=== PATIENT | male | born 1940 | race Caucasian/White ===

== ENCOUNTER 2017-03-29 06:34 | Inpatient (IN) ==
[2017-03-29] MEDS ORDERED: ASPIRIN 325 MG TABLET PO STA (06:58)
[2017-03-29] MEDS ORDERED: ENOXAPARIN 100 MG/ML SYRINGE SUBCUT STA (06:58)
[2017-03-29] MEDS ORDERED: ALUM/MAG/SIMETH/LIDO VISC 1:1 30 ML BOTTLE PO STA (07:06)
[2017-03-29] MEDS ORDERED: ALUM/MAG/SIMETH/LIDO VISC 1:1 30 ML BOTTLE PO ONE (07:08)
[2017-03-29] MEDS ORDERED: ASPIRIN 325 MG TABLET ONE (07:08)
--- NOTE | 2017-03-29 07:14 | Emergency Department Note ---
Christ Garland Brooke, am scribing for, and in the presence of, Zeferino De La Fuente MD 07:09 . Leisa Garland James D, MD, personally performed the services described in this documentation, ascribed by hTalia Polo in my presence, and it is both accurate and complete 713 . Arrival - Arrival Chief Complaint: Chest Pain Stated Complaint: chest pain ED Nursing Triage Note: Pt to triage with c/o stabbing chest pain, but denies it radiating. Denies SOB, N/V, at this time. Pt family states he was just discharged from [facility] yesterday with the same complaint. Mode of Arrival: Ambulatory Limitations: No Limitations Source: Patient, RN Notes Reviewed Time Seen by Provider: 03/29/17 06:58 - History of Present Illness HPI Narrative: Patient is a 76 year old male who presents to the ED with c/o epigastric pain and burning that started on Tuesday around 1999. Patient says the pain radiates up into his chest. He states "it hurts more than it velasquez." Patient says the pain is not worsened with exertion and sates "sometimes it's better when I move around." Patient says he has been seen, in the past, with same complaint. He is unable to recall what was wrong with him but says he did take medication for it. Patient says he saw Dr. White, with the pain in the past, and he was able to rule out the heart. He says Dr. Eduardo scoped him about two years ago and says he was having problems with his "throat closing up." Patient says he is not having problems with food getting caught in his throat. Patient denies having any nausea, vomiting, or shortness of breath. He has no known medical problems. Onset (ago): day(s) (2) Allergies/Adverse Reactions: Allergies Allergy/AdvReac Type Severity Reaction Status Date / Time No Known Allergies Allergy Unverified 03/29/17 06:39 Home Medications: Home Medications Medication Instructions Recorded Confirmed Type Aspirin 81 mg PO 03/29/17 History Pantoprazole Tab [Protonix Tab] 40 mg PO DAILY 03/29/17 03/29/17 History Review of System - Review of System 12 point system: reviewed and no additional remarkable complaints except as stated - Review of System Constitutional: Absent: fever Respiratory: Absent: respiratory distress Cardiovascular: Present: chest pain (epigastric pain and burning radiating into chest) Gastrointestinal: Present: abdominal pain (epigastric pain and burning). Absent : nausea, vomiting Skin: Absent: rash Medical,Surgical,& Family Hx - Social History Smoking Status: Unknown if ever smoked Frequency of Alcohol Use: None Type of Drug Use: None Exam Vital Signs: Vital Signs Temperature 98.4 F 03/29/17 07:02 Pulse Rate 63 03/29/17 07:30 Respiratory Rate 21 03/29/17 07:30 Blood Pressure 158/103 03/29/17 07:30 O2 Sat by Pulse Oximetry 97 03/29/17 07:30 GENERAL: This is a well-nourished well-developed white male in no apparent distress. VITAL SIGNS: Reviewed HEENT: Head is atraumatic and normocephalic. Pupils are equal round react to light. Extraocular movements are intact. Oropharynx is benign with moist mucous membranes. NECK: Neck is soft and supple without tenderness. There are no masses. There is no lymphadenopathy. LUNGS: Lungs are clear to auscultation. Chest rises symmetrically. There is no chest wall tenderness. CV: Heart is regular rate and rhythm without murmurs rubs or gallops. ABDOMEN: Abdomen is soft, nontender to palpation. There are no abdominal abnormal masses palpated. There is no organomegaly. Bowel sounds are present and active. SKIN: Skin is warm and dry. No rash. EXTREMITIES: Patient has full range of motion without tenderness. There is no pedal edema. NEUROLOGIC: Awake alert and oriented 4. Cranial nerves II through XII are grossly intact. Motor is 5 over 5 in all extremities bilaterally. Course - Consultations Consultation #1: Discussed with hospitalist. Patient will be admitted to their service. Time: 09:18 Results - Labs CBC & BMP: 03/29/17 07:23 03/29/17 07:23 Lab Results: I have reviewed the patients labs Labs: Laboratory Tests 03/29/17 07:23 Troponin I < 0.015 CT abdomen and pelvis: Performed at [facility] yesterday. Negative for evidence of acute intra-abdominal process. - EKG EKG results: interpreted by ERMD - Impressions EKG: Sinus bradycardia with a rate of 55, normal ST-T waves, normal axis. - Diagnostic Findings Procedure: Chest x-ray: image reviewed by me (No infiltrates, no pleural effusions.), Ultrasound: report reviewed by me (Gallbladder ultrasound: No evidence of cholelithiasis or cholecystitis.) Critical Care Time Critical Care Time: No Disposition Clinical Impression: Upper abdominal pain, Left sided chest pain Case discussed with: patient Disposition: Still a Patient Condition: Stable
[2017-03-29] MEDS ORDERED: FAMOTIDINE 20 MG/2 ML VIAL IV STA (07:31)
[2017-03-29] MEDS ORDERED: ONDANSETRON 4 MG/2 ML VIAL IV STA (07:31)
[2017-03-29] MEDS ORDERED: ONDANSETRON 4 MG/2 ML VIAL ONE (07:32)
[2017-03-29] MEDS ORDERED: FAMOTIDINE 20 MG/2 ML VIAL IV ONE (07:32)
[2017-03-29 07:39] LABS: Basophils % 0.3 % (0.0-0.8); Eosinophils % 0.1 % (0.00-10.9); Hematocrit 46.6 VOL% (42.0-52.0); Hemoglobin 16.6 GM/DL (14.0-18.0); Immature Granulocytes % 0.4 %; Immature Granulocytes Absolute 0.06 #; Lymphocytes % 7.5 % (21.2-54.2); Mean Corpuscular HGB Conc 35.6 GM/DL (32-36); Mean Corpuscular Hemoglobin 31 PG (27-34); Mean Corpuscular Volume 87.9 FL (87-102); Mean Platelet Volume 12.2 FL (9.6-12.0); Monocytes # 1.3 10*3/uL (0.11-0.8); Monocytes % 9.8 % (1.7-12.7); Neutrophils # 11.2 10*3/uL (1.4-7.4); Neutrophils % 81.9 % (38.7-73.9); Platelet Count 149 T/CUMM (130-400); Red Cell Distribution Width 12.5 % (9.3-17.3); White Blood Count 13.7 T/CUMM (4-12)
--- NOTE | 2017-03-29 07:39 | XRay Report ---
XR chest 2V Indication: Chest pain Comparison: 23 June 2013 Findings: The heart and mediastinum are normal in size and configuration. The pulmonary vascularity is normal in caliber. No lung infiltrates, effusions, pneumothorax or other abnormality is demonstrated. Impression: Normal chest x-ray PROCEDURE INTERPRETED AT [facility] DEPARTMENT OF RADIOLOGY Final Report Signed by: Dr. Adonis Day
[2017-03-29] MEDS ORDERED: HYDROmorphone 2 MG/1 ML VIAL IV STA ×2 (07:43→09:43)
[2017-03-29] MEDS ORDERED: HYDROmorphone 2 MG/1 ML VIAL ONE ×2 (07:47→09:42)
[2017-03-29 07:52] LABS: PT Patient Result 10.5 SECS; Partial Thromboplastin Time 29.3 SECS (0-40)
[2017-03-29 08:16] LABS: Albumin 3.9 G/DL (3.4-5.0); Bilirubin,Total 1.2 MG/DL (0.2-1.0); Calcium 9.2 MG/DL (8.5-10.1); Osmolality,Calculated 269.4 MOS/KG (273-304); Potassium 3.8 MMOL/L (3.5-5.1); Total Protein 7.2 G/DL (6.4-8.3)
--- NOTE | 2017-03-29 08:20 | Ultrasound Report ---
Right upper quadrant ultrasound Indication: Abdominal Pain Findings: The liver is normal in size and echogenicity. The gallbladder is fluid-filled without evidence of stones or sludge. The gallbladder wall thickness is 3.2 mm . The common bile duct measures 3.9 mm. The visualized portion of the pancreas appear within normal limits The right kidney is normal in size and echogenicity and measures 10.0 cm . No free fluid or free air seen. Impression: No evidence of abnormality demonstrated. Ultrasound images stored and captured. PROCEDURE INTERPRETED AT [facility] DEPARTMENT OF RADIOLOGY Final Report Signed by: Dr. Adonis Day
--- NOTE | 2017-03-29 11:31 | Hospitalist History & Physical ---
Assessment and Plan - Time spent with patient Time spent with patient: Greater than 30 minutes (1) Upper abdominal pain Status: Acute Assessment and plan: Admit to Hospital Services. Will order a.m. labs. Will need to consult GI for further evaluation. Will discuss with Dr Briones for further recommendations. Current Visit: Yes History of Present Illness Chief complaint: Epigastric pain History of present illness: Mr. Manuel is a 76 year old white male presented to the ED for c/o severe epigastric pain and burning which occasionally radiates up to the lower chest started on Tuesday afternoon. He describes as "hurting/burning" pain but it does not radiate to any other location. PMHx of GERD and frequent "throat strictures stretched". He reports chest pain was more on Tuesday now pain is more localized to the upper middle epigastric area. He denies shortness of breath, fever, chills. He reports some nausea without vomiting. Reports last BM on Tuesday and normal. Denies any dark stools or bright red. Denies smoking, drinking alcohol or illicit drug use. Lives at home with . Ambulates without any assistance. He reports last upper scope was done about 1 [address] Eduardo, at which time "throat" was stretched. In ED: WBC 13.7; H&H 16.6 & 46.6; INR 1.0 PT 10.5; NA 133; K 3.8; BUN 16; Creatinine 1.40; Troponin <0.015 AST 17 ALT 27; Alkaline phos 80; Lipase 120.0. CXR normal chest xray. Gallbladder ultrasound: no evidence of abnormality demonstrated. Patient reported being seen at [facility] ED on Tuesday. They worked him up. He was discharged home. The CT Abd/Pelvis was negative for evidence of acute intra-abdominal process. After discussion with Dr De La Fuente in the ED and Dr Briones with Hospital medicine, it was agreed to admit patient to hospital for further evaluation. Will review any home medications and reconciliation to follow. Home Medications Medication Instructions Recorded Confirmed Type Aspirin EC Tab 81 mg PO DAILY 03/29/17 03/29/17 History Pantoprazole Tab [Protonix Tab] 40 mg PO DAILY 03/29/17 03/29/17 History Allergies Allergy/AdvReac Type Severity Reaction Status Date / Time No Known Allergies Allergy Unverified 03/29/17 06:39 Medical,Surgical,& Family Hx - Social History Smoking Status: Unknown if ever smoked Frequency of Alcohol Use: None Type of Drug Use: None Marital Status: Lives With:: Spouse Functional capacity: independent ambulation Review of systems: ROS completed and pertinent positives and negatives in the HPI. Exam - Constitutional Vitals: Period Temp Pulse Resp BP Sys/Horner Pulse Ox Last 24 Hr 98.4 F-98.4 F 54-71 15-21 130-171/68-103 97-100 General appearance: no acute distress, over weight - Head Head exam: Present: normal inspection - Eye Eye exam: Present: EOMI Pupils: Present: FERMÍN - Neck Neck exam: Present: normal inspection - Respiratory Respiratory exam: Present: clear to auscultation bilaterally. Absent: rhonchi, stridor, wheezes - Cardiovascular Cardiovascular exam: Present: regular rate and rhythm - GI/Abdominal GI/Abdominal exam: Present: normal bowel sounds, soft. Absent: tenderness, rebound - Extremities Exam Extremities exam: Present: full ROM. Absent: edema - Neurological Exam Neurological exam: Present: alert, oriented X3, CN II-XII intact - Psychiatric Psychiatric exam: Present: normal affect, normal mood. Absent: agitated, anxious - Skin Skin exam: Present: normal color, warm, dry Results - Labs CBC & BMP: 03/29/17 07:23 03/29/17 07:23 Lab Results: I have reviewed the past 24 hour labs - EKG EKG results: interpreted by ERMD - Diagnostic Findings Procedure: Chest x-ray: report reviewed by me (normal chest xray), Ultrasound: report reviewed by me (ABD: no evidence of abnormality demonstrated)
[2017-03-29] MEDS ORDERED: DOCUSATE SODIUM 100 MG CAPSULE PO PRN (11:42)
--- NOTE | 2017-03-29 14:02 | Gastrointestinal Consult Note ---
<NavdeepElke pena Gabrielle - Last Filed: 03/29/17 13:56> Assessment and Plan (1) Upper abdominal pain Status: Acute Assessment and plan: 03/29-2 day history of sudden onset epigastric pain radiating to right upper quadrant with associated nausea. Pain reported to be constant in nature wavered in intensity. Inability to eat or lie down and rest due to pain. CT of abdomen at outside facility on Tuesday noted. Obtain gallbladder ultrasound today (patient n.p.o.). Tentative plan for EGD tomorrow if patient remains stable. Check stools for occult blood. Plan and addendum to follow by Dr Eduardo. Current Visit: Yes History of Present Illness Chief complaint: Abdominal pain/epigastric pain History of present illness: Mr. Manuel is a 76 year old male who presented to the emergency room with 2 day history of moderate to severe epigastric and abdominal pain. Patient states that he was in his usual state of health until Tuesday evening after he ate his meal. He states shortly after that meal, he had a fairly sudden onset of pain in his epigastric region that radiated to his right upper quadrant and at times around to his back. He states that the pain was moderate to severe in nature and was constant wavering in intensity. He also complained of some burning sensations as well in his epigastric region. He also states he had some nausea without vomiting with the pain. He denies any other associated symptoms. Following the onset of pain on Tuesday evening, he went to [facility] where he had a CT scan done which was negative at that time. He was then discharged home. Patient states that the pain has continued and progressed since onset on Tuesday and he has been unable to eat or drink anything since that time. He denies any changes in his bowels, denies any melena or hematochezia. He denies any recent weight loss, fever or chills. Denies any NSAID use. States that he does have a history of esophageal stricture and was last dilated approximately a year ago at the endoscopic clinic by Dr. Eduardo. Patient denies any dysphagia or odynophagia at this time. He denies any worsening GERD or dyspepsia symptoms. His only home medications are noted to be Protonix, which he states he takes daily, and aspirin. He denies any history of cardiac disease. Denies having this pain before in the past. Denies history of GI bleed or peptic ulcer disease. He does state that if he can get up and walk around at times the pain is a little bit better. Patient states he has not been able to sleep or sit still since onset of pain on Tuesday. He denies history of gallbladder disease in the past. He denies any alcohol or tobacco use. Home Medications Medication Instructions Recorded Confirmed Type Aspirin EC Tab 81 mg PO DAILY 03/29/17 03/29/17 History Pantoprazole Tab [Protonix Tab] 40 mg PO DAILY 03/29/17 03/29/17 History Allergies Allergy/AdvReac Type Severity Reaction Status Date / Time No Known Allergies Allergy Unverified 03/29/17 06:39 Medical,Surgical,& Family Hx - Social History Smoking Status: Unknown if ever smoked Frequency of Alcohol Use: None Type of Drug Use: None 12 point system: reviewed and no additional remarkable complaints except as stated - Constitutional Constitutional: Present: as per HPI - EENT Eyes: Present: as per HPI Ears: Present: as per HPI Nose, mouth and throat: Present: as per HPI - Cardiovascular Cardiovascular: Present: as per HPI - Respiratory Respiratory: Present: as per HPI - Gastrointestinal Gastrointestinal: Present: as per HPI, abdominal pain, heartburn, nausea - Genitourinary Genitourinary: Present: as per HPI - Musculoskeletal Musculoskeletal: Present: as per HPI - Neurological Neurological: Present: as per HPI - Psychiatric Psychiatric: Present: as per HPI - Endocrine Endocrine: Present: as per HPI - Hematologic/Lymphatic Hematologic/Lymphatic: Present: as per HPI Exam - Constitutional Vitals: Period Temp Pulse Resp BP Sys/Horner Pulse Ox Last 24 Hr 98.4 F-99.1 F 54-76 15-21 130-178/68-103 97-100 General appearance: normal weight, no acute distress - Head Head exam: Present: normal inspection, normocephalic - Eye Eye exam: Present: other (Lids and conjunctivae are unremarkable). Absent: scleral icterus - ENT ENT exam: Present: normal exam, normal oropharynx - Neck Neck exam: Present: normal inspection - Respiratory Respiratory exam: Present: clear to auscultation bilaterally. Absent: rales, rhonchi, wheezes - Cardiovascular Cardiovascular exam: Present: regular rate and rhythm. Absent: diastolic murmur , JVD, systolic murmur - GI/Abdominal GI/Abdominal exam: Present: normal bowel sounds, soft. Absent: ascites, distended, mass, organomegaly, tenderness - Extremities Exam Extremities exam: Present: normal inspection, full ROM - Back Exam Back exam: Present: normal inspection - Neurological Exam Neurological exam: Present: alert, oriented X3 - Psychiatric Psychiatric exam: Present: normal affect, normal mood - Skin Skin exam: Present: normal color, warm, dry Results - Labs CBC & BMP: 03/29/17 07:23 03/29/17 07:23 Lab Results: I have reviewed the past 24 hour labs - Diagnostic Findings Procedure: CT Abdomen and Pelvis: report reviewed by me (From outside facility) <Eh Eduardo - Last Filed: 03/29/17 21:49> History of Present Illness Chief complaint: 3030 History of present illness: Mr. Manuel is a 76 year old male Exam - Constitutional Vitals: Period Temp Pulse Resp BP Sys/Horner Pulse Ox Last 24 Hr 97.2 F-101.7 F 54-82 15-21 130-180/68-103 92-100 Results - Labs CBC & BMP: 03/29/17 07:23 03/29/17 07:23
[2017-03-29] MEDS: SODIUM CHLORIDE 0.9% 1,000 ML IV SCH (14:57)
[2017-03-29] MEDS: ENOXAPARIN 40 MG/0.4 ML SYRINGE SUBCUT SCH (14:57)
[2017-03-29] MEDS: ACETAMINOPHEN 325 MG TABLET PO PRN (15:05)
[2017-03-29] MEDS ORDERED: NIFEdipine 10 MG CAPSULE PO PRN (15:50)
[2017-03-29] MEDS ORDERED: HYDROmorphone 2 MG/1 ML VIAL IV PRN (15:50)
[2017-03-29] MEDS: FAMOTIDINE 20 MG/2 ML VIAL IV SCH (20:29)
--- NOTE | 2017-03-30 05:57 | EKG Report ---
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
[2017-03-30 06:20] LABS: Basophils % 0.2 % (0.0-0.8); Hematocrit 41.4 VOL% (42.0-52.0); Hemoglobin 14.9 GM/DL (14.0-18.0); Immature Granulocytes % 0.6 %; Immature Granulocytes Absolute 0.12 #; Lymphocytes # 0.8 10*3/uL (1.4-4.0); Lymphocytes % 3.9 % (21.2-54.2); Mean Corpuscular Hemoglobin 31 PG (27-34); Mean Corpuscular Volume 86.1 FL (87-102); Mean Platelet Volume 12.6 FL (9.6-12.0); Monocytes % 9.4 % (1.7-12.7); Neutrophils # 18.2 10*3/uL (1.4-7.4); Neutrophils % 85.9 % (38.7-73.9); Platelet Count 117 T/CUMM (130-400); Red Blood Count 4.81 MC/CUMM (3.8-5.5); Red Cell Distribution Width 12.4 % (9.3-17.3); White Blood Count 21.2 T/CUMM (4-12)
[2017-03-30 06:44] LABS: Band Neutrophils 3 % (0-10); Hypochromasia 1+; Lymphocytes 4 % (20-55); Platelet Estimate Decreased; Segmented Neutrophils 86 % (50-85); Total Cells Counted 100
[2017-03-30 06:50] LABS: Calcium 8.6 MG/DL (8.5-10.1); Magnesium 1.8 MG/DL (1.8-2.4); Osmolality,Calculated 269.4 MOS/KG (273-304); Potassium 3.6 MMOL/L (3.5-5.1)
[2017-03-30] MEDS: SODIUM CHLORIDE 0.9% 1,000 ML IV SCH ×3 (06:50→23:22)
[2017-03-30 06:54] LABS: Troponin I Only < 0.015 NG/ML (0.00-0.045)
[2017-03-30] MEDS ORDERED: PANTOPRAZOLE 40 MG TABLET PO SCH (09:00)
--- NOTE | 2017-03-30 11:26 | Gastrointestinal Progress Note ---
<DarrenElke miller Gabrielle - Last Filed: 03/30/17 11:24> Assessment and Plan (1) Upper abdominal pain Status: Acute Assessment and plan: 03/30-abdominal pain improved today. Awaiting results of HIDA scan at present time. Reschedule EGD for tomorrow. Plan an addendum to follow Dr. Eduardo. 03/29-2 day history of sudden onset epigastric pain radiating to right upper quadrant with associated nausea. Pain reported to be constant in nature wavered in intensity. Inability to eat or lie down and rest due to pain. CT of abdomen at outside facility on Tuesday noted. Obtain gallbladder ultrasound today (patient n.p.o.). Tentative plan for EGD tomorrow if patient remains stable. Check stools for occult blood. Plan and addendum to follow by Dr Eduardo. Current Visit: Yes Gastroenterology - PN: Subj Interval history: CC: Abdominal pain Patient is seen awake and alert lying in bed. States that he rested fairly well overnight. He denies any epigastric abdominal pain at this time. He was scheduled for an EGD today however there was a conflict with the timing of his endoscopy as well as his HIDA scan in the EGD has to be postponed to tomorrow. He denies any nausea vomiting. Abdomen is soft, nontender at this time. Abdominal ultrasound noted to be negative on yesterday. ROS: Denies shortness of breath or chest pain Exam (Progress Note) - Constitutional Vitals: Period Temp Pulse Resp BP Sys/Horner Pulse Ox Last 24 Hr 97.2 F-101.7 F 75-86 15-20 121-180/65-95 91-98 General appearance: normal weight, no acute distress - Head Head exam: Present: normal inspection, normocephalic - Eye Eye exam: Present: other (Lids and conjunctive are unremarkable). Absent: scleral icterus - ENT ENT exam: Present: normal exam, normal oropharynx - Neck Neck exam: Present: normal inspection - Respiratory Respiratory exam: Present: clear to auscultation bilaterally. Absent: rales, rhonchi, wheezes - Cardiovascular Cardiovascular exam: Present: regular rate and rhythm. Absent: diastolic murmur , JVD, systolic murmur - GI/Abdominal GI/Abdominal exam: Present: normal bowel sounds, soft. Absent: ascites, distended, mass, organomegaly, tenderness - Extremities Exam Extremities exam: Present: normal inspection, full ROM - Back Exam Back exam: Present: normal inspection - Neurological Exam Neurological exam: Present: alert, oriented X3 - Psychiatric Psychiatric exam: Present: normal affect, normal mood - Skin Skin exam: Present: normal color, warm, dry Results - Labs CBC & BMP: 03/30/17 05:56 03/30/17 05:56 Lab Results: I have reviewed the past 24 hour labs - Diagnostic Findings Procedure: Ultrasound: report reviewed by me <Eh Eduardo - Last Filed: 03/30/17 22:43> Exam (Progress Note) - Constitutional Vitals: Period Temp Pulse Resp BP Sys/Horner Pulse Ox Last 24 Hr 98.6 F-100.0 F 77-132 18-35 118-183/63-97 91-97 Results - Labs CBC & BMP: 03/30/17 05:56 03/30/17 05:56
--- NOTE | 2017-03-30 11:48 | Nuclear Medicine Report ---
Nuclear medicine hepatobiliary scan Indication: Abdominal pain Findings: The patient was injected with 5.0 mCi of 90 9M technetium Choletec intravenously. There is prompt hepatic uptake and excretion into the biliary system. Gallbladder did not fill. Impression: Nonvisualization of gallbladder, could indicate acute cholecystitis. PROCEDURE INTERPRETED AT [facility] DEPARTMENT OF RADIOLOGY Final Report Signed by: Dr. Adonis Day
--- NOTE | 2017-03-30 12:33 | Hospitalist Progress Note ---
Assessment and Plan (1) Upper abdominal pain Status: Acute Assessment and plan: Abdominal ultrasound noted to be negative .CXR also negative. Patient has had an HIDA scan today, he has been scheduled for an EGD in am. Will also get H.pylori testing. Current Visit: Yes (2) Fever Status: Acute Assessment and plan: with elevated WBC, CXR-negative Plan BC, UC Empiric Zosyn coverage cbc in am Current Visit: Yes (3) Elevated blood pressure reading Status: Acute Assessment and plan: continue Nifedipine prn Current Visit: Yes Hospitalist: Subjective Interval history: Patient is still spiking temp, his WBC has also increased to 21.2.CXR, Gall bladder were negative. Exam - Constitutional Vitals: Period Temp Pulse Resp BP Sys/Horner Pulse Ox Last 24 Hr 97.2 F-101.7 F 76-86 17-20 121-183/65-97 91-98 General appearance: no acute distress - Head Head exam: Present: normal inspection - Neck Neck exam: Present: normal inspection - Respiratory Respiratory exam: Present: clear to auscultation bilaterally - Cardiovascular Cardiovascular exam: Present: regular rate and rhythm - GI/Abdominal GI/Abdominal exam: Present: normal bowel sounds - Extremities Exam Extremities exam: Present: normal inspection - Neurological Exam Neurological exam: Present: alert, oriented X3 Results - Labs CBC & BMP: 03/30/17 05:56 03/30/17 05:56 Lab Results: I have reviewed the past 24 hour labs
[2017-03-30] MEDS ORDERED: METOPROLOL TARTRATE 25 MG TABLET PO SCH (16:00)
[2017-03-30 16:28] LABS: Amorphous Crystals,Urine Occasional /HPF (Few); Apearance,Urine CLOUDY (Clear); Bacteria,Urine Occasional /HPF (Few); Bilirubin,Urine Negative (Negative); Blood, Urine Moderate mg/dL (Negative); Glucose,Urine (UA) Negative (Negative); Ketones,Urine Negative (Negative); Mucus,Urine Occasional /LPF (Occasional); Nitrite,Urine Negative (Negative); Protein,Urine 100 MG/DL; RBC,Urine 20 /HPF (0-4); Squamous Epithelial Cell,Urine Occasional /HPF (0-10); Urine Color Dark yellow (Yellow); Urine Specific Gravity 1.013 (1.001-1.035); WBC,Urine 2 /HPF (0-6)
--- NOTE | 2017-03-30 16:33 | EKG Report ---
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
[2017-03-30] MEDS: FAMOTIDINE 20 MG/2 ML VIAL IV SCH ×2 (16:54→23:16)
[2017-03-30] MEDS: PIPERACILLIN/TAZOBACTAM 3,375 MG in SODIUM CHLORIDE 0.9% 100 ML IV SCH (16:56)
--- NOTE | 2017-03-30 17:03 | General Surgery Consult Note ---
Assessment and Plan - Time spent with patient Time spent with patient: Greater than 30 minutes (1) Cholecystitis, acute Status: Acute Assessment and plan: He appears to have acute cholecystitis. He may have developing sepsis. He just received his first dose of IV antibiotics. I suspect that his tachycardia is related to his gallbladder and developing sepsis and we will check an EKG to make sure that he has not gone into atrial fibrillation. I discussed the treatment options with the patient in the family. I had initially discussed laparoscopic cholecystectomy with him and they have expressed concerns about doing a cholecystectomy considering the fact that he seems to be getting sicker and may not be a good candidate for surgery. We also discussed the option of IV antibiotics and resuscitation with consideration of a percutaneous drain to temporize the situation and relieve any biliary sepsis temporarily. I also discussed this with Dr. Jacobs who is going to see how he does on antibiotics and if he responds then we can hold off however if he continues to worsen then we can look at doing a percutaneous drain tonight. Either way I feel that he needs to be moved to the ICU and I discussed this with Dr. Ricarda alvarenga. I would hope to see that he responds to antibiotics and fluids however if he does not we need to intervene on his gallbladder with either percutaneous drainage or going ahead with cholecystectomy. These issues were discussed in detail with the patient and family. Current Visit: Yes History of Present Illness Chief complaint: Gallbladder History of present illness: Mr. Manuel is a 76 year old male With a 3 day history of right upper quadrant pain and some nausea and vomiting. The pain has been intermittent and moderate in severity and sometimes radiating to his back. He had an ultrasound that was normal other than some borderline gallbladder wall thickness. He had a HIDA scan today which showed nonvisualization of his gallbladder. Family reports changes in his mental status and confusion over the last couple of hours. He was fine before that. He currently denies abdominal pain but has had some pain medication. He has developed a tachycardia over the last hour or 2 that is needed. Home Medications Medication Instructions Recorded Confirmed Type Aspirin EC Tab 81 mg PO DAILY 03/29/17 03/29/17 History Pantoprazole Tab [Protonix Tab] 40 mg PO DAILY 03/29/17 03/29/17 History Allergies Allergy/AdvReac Type Severity Reaction Status Date / Time No Known Allergies Allergy Unverified 03/29/17 06:39 Medical,Surgical,& Family Hx - Medical History Gastrointestinal: History of: GERD - Surgical History Surgical History: noncontributory Thoracic Surgeries: Patient denies;: Kidney (Renal Surgery) (cyst but no surgery. dr. stafford follows) - Family History Family History: noncontributory - Social History Smoking Status: Unknown if ever smoked Frequency of Alcohol Use: None Type of Drug Use: None - Constitutional Constitutional: Present: fever(s). Absent: anorexia, chills - Cardiovascular Cardiovascular: Absent: chest pain at rest, chest pain with activity, dyspnea, dyspnea on exertion, syncope - Respiratory Respiratory: Absent: dyspnea, hemoptysis, dyspnea on exertion - Gastrointestinal Gastrointestinal: Present: abdominal pain, bloating, nausea, vomiting. Absent: hematemesis, hematochezia, jaundice - Genitourinary Genitourinary: Absent: hematuria - Musculoskeletal Musculoskeletal: Absent: back pain - Neurological Neurological: Absent: focal weakness Hematologic/Lymphatic: Absent: easy bleeding, easy bruising Exam - Constitutional Vitals: Period Temp Pulse Resp BP Sys/Horner Pulse Ox Last 24 Hr 97.2 F-100.3 F 77-132 18-35 118-183/63-97 91-97 General appearance: no acute distress, over weight - Head Head exam: Present: normocephalic - Eye Eye exam: Absent: scleral icterus - ENT Mouth exam: Present: normal voice - Neck Neck exam: Present: trachea midline - Respiratory Respiratory exam: Present: clear to auscultation bilaterally. Absent: accessory muscle use - Cardiovascular Cardiovascular exam: Present: RRR - GI/Abdominal GI/Abdominal exam: Present: normal bowel sounds, distended, soft. Absent: guarding, mass, tenderness, rebound - Extremities Exam Extremities exam: Absent: edema - Neurological Exam Neurological exam: Present: alert, oriented X3 Speech: Present: normal - Skin Skin exam: Present: normal color Results - Labs CBC & BMP: 03/30/17 05:56 03/30/17 05:56 Lab Results: I have reviewed the past 24 hour labs
--- NOTE | 2017-03-30 17:37 | Inventional Radiology Consult ---
Assessment and Plan - Time spent with patient Time spent with patient: Less than 30 minutes (1) Cholecystitis, acute Problem details: may be progressing to sepsis with new tachycardia and confusion Status: Acute Assessment and plan: got first dose of ZOsyn this afternoon and is being transferred to the ICU for closer monitoring. We will see how he does clinically with IV hydration and antibiotic administration. The EKG does not show atrial fibrillation or acute ischemia. At this point, plan is for gallbladder drain placement first case in the morning. NPO after midnight. ASA III Discussed the risks and into the benefits with the patient/family who agreed to proceed. Current Visit: Yes IR Consult - Data of Consult Patient: new to practice Consult date: 03/30/17 Requesting Physician: Epifanio Bose III. - Consult Narrative Reason for consult: probable biliary sepsis History of present illness: Mar is a 76 year old M 3 day history of RUQ pain and n/v. The pain has been intermittent and moderate to severe with some radiation to the back. U/s shows mildly dilated GB without stones and NM HIDA shows nonvisualization of the GB. The WBC count is 21k today up from 13k. Family reports that mental status changes are new/progressing this afternoon. He was not getting any antibiotics until today. On my interview, he does report some abdominal pain but he is somewhat nonspecific and drowsy. He has no chest pain. There is no reported shortness of breath. Tachycardia is noted, which reportedly has developed over the last couple hours. ROS otherwise negative. - Home Medications and Allergies Home Medications: Home Medications Medication Instructions Recorded Confirmed Type Aspirin EC Tab 81 mg PO DAILY 03/29/17 03/29/17 History Pantoprazole Tab [Protonix Tab] 40 mg PO DAILY 03/29/17 03/29/17 History Allergies/Adverse Reactions: Allergies Allergy/AdvReac Type Severity Reaction Status Date / Time No Known Allergies Allergy Unverified 03/29/17 06:39 12 point system: reviewed and no additional remarkable complaints except as stated Medical,Surgical,& Family Hx - Medical History Gastrointestinal: History of: GERD - Surgical History Thoracic Surgeries: Patient denies;: Kidney (Renal Surgery) (cyst but no surgery. dr. stafford follows) - Social History Smoking Status: Unknown if ever smoked Frequency of Alcohol Use: None Type of Drug Use: None Exam - Labs CBC & BMP: 03/30/17 05:56 03/30/17 05:56 Lab Results: I have reviewed the past 24 hour labs Labs: INR 1.0 03/29/17 07:23 Image Studies: U/s and NM HIDA reviewed - Constitutional Vitals: Period Temp Pulse Resp BP Sys/Horner Pulse Ox Last 24 Hr 97.2 F-100.3 F 77-132 18-35 118-183/63-97 91-97 General appearance: over weight, morbidly obese - Eye Eye exam: Present: EOMI - Respiratory Respiratory exam: Present: clear to auscultation bilaterally, accessory muscle use - Cardiovascular Cardiovascular exam: Present: tachycardia - GI/Abdominal GI/Abdominal exam: Present: guarding, hypoactive bowel sounds, tenderness ( right side). Absent: firm - Neurological Exam Neurological exam: Present: alert, other (drowsy but arouses easily and answers questions). Absent: oriented X3 - Skin Skin exam: Present: normal color, dry
[2017-03-30 17:47] LABS: Troponin I Only 0.208 NG/ML (0.00-0.045)
[2017-03-30] MEDS: ACETAMINOPHEN 325 MG TABLET PO PRN (18:09)
[2017-03-30 18:46] LABS: Amorphous Crystals,Urine Few /HPF (Few); Apearance,Urine CLOUDY (Clear); Bacteria,Urine Occasional /HPF (Few); Blood, Urine Moderate mg/dL (Negative); Glucose,Urine (UA) 50 mg/dL (Negative); Ketones,Urine Negative (Negative); Mucus,Urine Moderate /LPF (Occasional); Nitrite,Urine Negative (Negative); Protein,Urine 100 MG/DL; RBC,Urine 20 /HPF (0-4); Squamous Epithelial Cell,Urine Occasional /HPF (0-10); Urine Color Amber (Yellow); Urine Specific Gravity 1.016 (1.001-1.035); WBC,Urine 2 /HPF (0-6)
[2017-03-30 18:47] LABS: Bilirubin,Urine Small mg/dL (Negative)
[2017-03-30] MEDS ORDERED: ACETAMINOPHEN 650 MG SUPP RECTAL PRN (18:53)
--- NOTE | 2017-03-30 18:55 | CT Report ---
CT head/brain wo con Indication: Left-sided weakness. Comparison: None. Technique: CT of the brain was performed without administration of intravenous contrast. The CT examination was performed using one or more of the following dose reduction techniques: Automatic exposure control, adjustment of the mA and kV according to patient size, use of acute or iterative reconstruction techniques. Findings: There is no evidence of acute intracranial hemorrhage, mass, or infarction. Ventricles appear within normal limits. The basal cisterns are patent. No significant abnormality is demonstrated to involve the posterior fossa or cerebellum. Orbits and globes demonstrate no evidence of significant pathology. The paranasal sinuses are clear. No significant abnormality is demonstrated to involve the mastoid air cells. The calvarium and overlying soft tissues demonstrate no evidence of acute pathology. Impression: 1. No CT evidence of acute intracranial pathology. MRI brain without intravenous contrast administration is recommended to exclude acute ischemia. 03/30/2017 6:51 PM PROCEDURE INTERPRETED AT [facility] DEPARTMENT OF RADIOLOGY Final Report Signed by: Dr. Rafat Baires
[2017-03-30] MEDS ORDERED: SODIUM CHLORIDE 0.9% 3,150 ML IV ONE ×2 (19:20→19:23)
--- NOTE | 2017-03-30 19:36 | Event Note ---
Mr. Manuel apparently had decrease in his mental status with some slurring of speech and confusion. He was transferred to the CCU at which time I was called. CT of the head was performed revealed no acute change. He is noted to have a temperature of 103F with associated tachycardia, tachypnea and systolic blood pressure in the 70s upon my arrival. He is awake and alert but disoriented. He is unable to answer questions appropriately at this time. He does obey simple commands and his strength is symmetric in both upper and lower extremities. Lab and radiologic data been reviewed. I discussed findings with his . This is likely encephalopathy related to sepsis. I have initiated sepsis protocol and will give him fluid resuscitation and obtain lactate with follow-up if greater than 2. He has already been cultured and placed on IV antibiotics earlier. I will make him n.p.o. and hold his antihypertensive therapy for now. We will give him rectal aspirin and continue with neuro checks. There is a possibility of CVA however I doubt this at this time but treatment would not be altered from current management.
--- NOTE | 2017-03-30 20:24 | EKG Report ---
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
--- NOTE | 2017-03-30 20:36 | Event Note ---
He is being resuscitated in the ICU with fluids and antibiotics. He has an elevated lactate level. He seems more alert but still confused. This appears to represent sepsis. Suspect that his gallbladder is the source. I discussed this with Dr. Jacobs who is going to come an ultrasound of the bedside and look at placing a percutaneous drain. I discussed this plan with the family. I think this would be preferable to going to the OR considering the fact that he has some hypotension and needs further resuscitation.
[2017-03-30] MEDS: DOPamine 800 MG/250 ML PREMIX IV SCH (21:25)
--- NOTE | 2017-03-30 21:43 | Event Note ---
Procedure note Triple-lumen placement in the right internal jugular vein Diagnosis: sepsis with shock and hypotension The patient was seen and examined. The site was marked. A timeout was taken. The patient's identity, procedure, consent and location were identified. The patient was prepped and draped in sterile fashion. Local anesthesia was given with 1% lidocaine plain. The internal jugular vein was accessed and the guide wire placed without difficulty. After using the tissue dilator, the triple lumen catheter was placed over the wire and the wire removed intact. All ports were flushed with normal saline and functioned well. The central line was secured with the enclosed suture. A chest x-ray was ordered to confirm placement. The patient tolerated the procedure well. The nurse will place the dressing according to the hospital protocols. The x-ray was reviewed by me and shows no pneumothorax with adequate placement of the triple-lumen catheter in the right internal jugular vein terminating in the superior vena cava.
--- NOTE | 2017-03-30 21:50 | Event Note ---
Follow-up physical exam for diagnosis of sepsis secondary to biliary source. The patient has been receiving IV fluid resuscitation. IV antibiotics have been started. I placed a right triple-lumen internal jugular venous catheter for continued IV fluid support, IV antibiotics, and CVP measurement. Sepsis - Sepsis Classification of Sepsis: Septic Shock Sepsis documentation within 6 hours of presentation: fluid change - Physical Exam Respiratory exam: clear to auscultation bilaterally Capillary Refill: Less Than 3 Seconds Peripheral pulses: Radial (L): 3+/4+, Radial (R): 3+/4+, Dorsalis Pedis (L) PM: 3+/4+, Dorsalis Pedis (R) PM: 3+/4+, Posterior Tibialis (L): 3+/4+, Posterior Tibialis (R): 3+/4+ Cardiovascular exam: tachycardia Skin exam: normal color
--- NOTE | 2017-03-30 22:16 | Post Interventional Procedure ---
Pre-op diagnosis: biliary sepsis, acalculous cholecystitis Post-op diagnosis: same Procedure: u/s guided cholecystostomy tube placement Contrast: none Flouroscopy: none Radiologist: Charles Jacobs Anesthesia: local Specimens: other (purulent GB drainage sent for Micro analysis) Estimated blood loss: none Complications: none Condition: stable Description/Findings: 8 Fr pigtail drain placed into the GB with u/s guidance shanika pus with foul odor and some blood aspirated - patient remains in critical but stable condition Assessment and Plan - Time spent with patient Time spent with patient: Less than 30 minutes (1) Cholecystitis, acute Problem details: may be progressing to sepsis with new tachycardia and confusion Status: Acute Assessment and plan: got first dose of ZOsyn this afternoon and is being transferred to the ICU for closer monitoring. We will see how he does clinically with IV hydration and antibiotic administration. The EKG does not show atrial fibrillation or acute ischemia. At this point, plan is for gallbladder drain placement first case in the morning. NPO after midnight. ASA III Discussed the risks and into the benefits with the patient/family who agreed to proceed Post procedure: Shanika pus from GB - 8 Fr drain placed - samples sent for micro Current Visit: Yes
--- NOTE | 2017-03-30 22:51 | Interventional Radiology Rpt ---
IR cholecystostomy complete Cholecystostomy catheter placement using ultrasound and fluoroscopic guidance Cholecystogram Abdominal ultrasound Clinical Information: The patient is not a surgical candidate due to active/worsening sepsis, tachycardia, febrile and confusion. Physician[s]: Dr. Jacobs Total number of images for the procedure: 3 Procedure: The patient was advised of the benefits, risks, and alternatives of the procedure and informed consent was obtained. A time out was performed with verification of the patient's name, MRN, site of procedure, and type of procedure to be performed. The patient was positioned in the supine position on the angiographic table. The site was prepped and draped in the usual sterile fashion. Local anesthesia only was used for the procedure. A bottom cager radiograph reveals no relevant abnormality. A preliminary ultrasound of the abdomen demonstrates mildly dilated gallbladder with minimal wall thickening. No significant internal stones or pericholecystic fluid identified.. The overlying soft tissues were anesthetized with lidocaine. A 20-gauge Chiba wall needle was passed into the gallbladders under sonographic guidance. A J-wire wire was then inserted into the gallbladder and wire positioning was confirmed with ultrasound images of the gallbladder demonstrating the K wire within the gallbladder lumen. An 8 English Cook all-purpose drain was passed into the gallbladder over the wire. The pigtail was formed and locked in position. A fluid sample was aspirated and sent to the laboratory for analysis. The catheter was secured in position with Percu-Stay device and a sterile dressing applied. The catheter was placed to gravity drainage. The patient tolerated the procedure well and was returned to the PRU in stable condition. EBL: < 5 mL. Complications: None. Conclusion: 1. Ultrasound of the abdomen demonstrates dilated gallbladder with minimal wall thickening but no definite stones or pericholecystic fluid. 2. Successful cholecystostomy catheter placement. 3. The catheter should be flushed daily with 5 ml normal saline. 4. If the patient remains non-operative, the catheter can be evaluated after 6 weeks for possible removal. PROCEDURE INTERPRETED AT [facility] DEPARTMENT OF RADIOLOGY Final Report Signed by: Charles Jacobs
[2017-03-30] MEDS: ASPIRIN 300 MG SUPP RECTAL SCH (23:17)
[2017-03-30] MEDS: ENOXAPARIN 40 MG/0.4 ML SYRINGE SUBCUT SCH (23:17)
[2017-03-30] MEDS: CEFEPIME 1,000 MG in SODIUM CHLORIDE 0.9% 100 ML IV SCH (23:21)
[2017-03-30] MEDS ORDERED: ONDANSETRON 4 MG/2 ML VIAL IV ONE (23:29)
[2017-03-31] MEDS: PIPERACILLIN/TAZOBACTAM 3,375 MG in SODIUM CHLORIDE 0.9% 100 ML IV SCH ×4 (01:02→23:55)
[2017-03-31 04:23] LABS: Basophils # 0.1 10*3/uL (0.0-0.2); Basophils % 0.3 % (0.0-0.8); Hematocrit 39.6 VOL% (42.0-52.0); Hemoglobin 14.3 GM/DL (14.0-18.0); Immature Granulocytes % 5.7 %; Immature Granulocytes Absolute 2.02 #; Lymphocytes # 1.3 10*3/uL (1.4-4.0); Lymphocytes % 3.6 % (21.2-54.2); Mean Corpuscular HGB Conc 36.1 GM/DL (32-36); Mean Corpuscular Hemoglobin 32 PG (27-34); Mean Corpuscular Volume 87.6 FL (87-102); Mean Platelet Volume 12.9 FL (9.6-12.0); Monocytes % 2.9 % (1.7-12.7); Neutrophils % 87.5 % (38.7-73.9); Platelet Count 112 T/CUMM (130-400); Red Blood Count 4.52 MC/CUMM (3.8-5.5); Red Cell Distribution Width 12.7 % (9.3-17.3); White Blood Count 35.4 T/CUMM (4-12)
[2017-03-31 04:33] LABS: Calcium 7.2 MG/DL (8.5-10.1); Magnesium 1.6 MG/DL (1.8-2.4); Osmolality,Calculated 276.1 MOS/KG (273-304); Potassium 4.3 MMOL/L (3.5-5.1)
[2017-03-31 04:49] LABS: Band Neutrophils 28 % (0-10); Lymphocytes 2 % (20-55); Myelocytes 3 %; Segmented Neutrophils 62 % (50-85); Total Cells Counted 100
[2017-03-31 04:50] LABS: Platelet Estimate Adequate
--- NOTE | 2017-03-31 06:54 | General Surgery Progress Note ---
Assessment and Plan (1) Cholecystitis, acute Problem details: may be progressing to sepsis with new tachycardia and confusion Status: Acute Assessment and plan: He appears to have acute cholecystitis. He may have developing sepsis. He just received his first dose of IV antibiotics. I suspect that his tachycardia is related to his gallbladder and developing sepsis and we will check an EKG to make sure that he has not gone into atrial fibrillation. I discussed the treatment options with the patient in the family. I had initially discussed laparoscopic cholecystectomy with him and they have expressed concerns about doing a cholecystectomy considering the fact that he seems to be getting sicker and may not be a good candidate for surgery. We also discussed the option of IV antibiotics and resuscitation with consideration of a percutaneous drain to temporize the situation and relieve any biliary sepsis temporarily. I also discussed this with Dr. Jacobs who is going to see how he does on antibiotics and if he responds then we can hold off however if he continues to worsen then we can look at doing a percutaneous drain tonight. Either way I feel that he needs to be moved to the ICU and I discussed this with Dr. Ricarda alvarenga. I would hope to see that he responds to antibiotics and fluids however if he does not we need to intervene on his gallbladder with either percutaneous drainage or going ahead with cholecystectomy. These issues were discussed in detail with the patient and family. 03/31: We moved him to CCU last night with sepsis and he had percutaneous drain placed by radiology. He looks better this morning. He is still requiring some pressors and required some fluids last night. He does not look as ill and is much more alert and oriented. He needs to continue with antibiotics and drainage. His white blood cell count has risen and his creatinine is risen a bit as well and this will need to be followed. Current Visit: Yes Subjective Patient reports: Present: feels better, pain is less. Absent: nausea, vomiting Exam - Constitutional Vitals: Period Temp Pulse Resp BP Sys/Horner Pulse Ox Last 24 Hr 97.7 F-103 F 86-132 13-35 72-183/48-97 90-98 General appearance: no acute distress - Eye Eye exam: Absent: scleral icterus - Respiratory Respiratory exam: Absent: accessory muscle use - GI/Abdominal GI/Abdominal exam: Present: soft. Absent: distended, tenderness Results - Labs CBC & BMP: 03/31/17 04:03 03/31/17 04:03 Lab Results: I have reviewed the past 24 hour labs
--- NOTE | 2017-03-31 07:04 | XRay Report ---
XR chest 1V portable Indication: Central line placement Comparison: 29 March 2017 Findings: The heart and mediastinum are stable in size and configuration. Right internal jugular catheter has been placed and tip overlies superior vena cava. The pulmonary vascularity is increased slightly with bilateral increased interstitial lung density. No other lung infiltrates, effusions, pneumothorax or other abnormality is demonstrated. Impression: Findings suggest mild cardiac decompensation. PROCEDURE INTERPRETED AT [facility] DEPARTMENT OF RADIOLOGY Final Report Signed by: Dr. Adonis Day
[2017-03-31 07:18] LABS: Albumin 2.5 G/DL (3.4-5.0); Bilirubin,Indirect 1.2 MG/DL (0.0-1.0); Bilirubin,Total 5.2 MG/DL (0.2-1.0); Total Protein 5.1 G/DL (6.4-8.3)
--- NOTE | 2017-03-31 08:19 | EKG Report ---
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
[2017-03-31] MEDS: ASPIRIN 300 MG SUPP RECTAL SCH (08:34)
[2017-03-31] MEDS: ENOXAPARIN 40 MG/0.4 ML SYRINGE SUBCUT SCH (08:34)
[2017-03-31] MEDS: FAMOTIDINE 20 MG/2 ML VIAL IV SCH ×2 (08:34→20:39)
--- NOTE | 2017-03-31 08:42 | Event Note ---
Mr Manuel looks much better this morning. Much more awake/alert. BP's look better too. Will continue to follow along.
--- NOTE | 2017-03-31 09:39 | Hospitalist Progress Note ---
Assessment and Plan (1) Sepsis Status: Acute Assessment and plan: 1)septic shock due to acute cholecystitis- much better after volume resuscitation, antibiotics, and perc drain. Continue these measures and anticipate eventual lap missy. cefepime, zosyn. GI and General surgery seeing him. Cultures pending. will require CCU today but may be able to move out tomorrow if he comes off the pressors as expected. lactic peaked at 5.4, down to 3.8 at last check after resuscitation. WBC rising, recheck in am. 2)HTN- not an issue while septic. 3)LIU- creatinine rising- from 1.2 to 1.8. this is due to ATN from sepsis. monitor. UOP ok. Current Visit: Yes (2) Cholecystitis, acute Problem details: may be progressing to sepsis with new tachycardia and confusion Status: Acute Current Visit: Yes Hospitalist: Subjective Interval history: Mr Manuel looks much better than he did last night according to Dr Neff's assessment. He is awake and oriented and marvelling at the fact that he thought he was at the [facility] last night. He denies pain or shortness of breath. He is on Dopamine at 6mcg with SBP of 124 and his nurse anticipates getting him off of it today. Exam - Constitutional Vitals: Period Temp Pulse Resp BP Sys/Horner Pulse Ox Last 24 Hr 97.7 F-103 F 84-132 12-35 72-183/48-97 90-99 General appearance: no acute distress, over weight - Head Head exam: Present: normocephalic, atraumatic - Eye Eye exam: Present: EOMI. Absent: scleral icterus - Respiratory Respiratory exam: Present: clear to auscultation bilaterally - Cardiovascular Cardiovascular exam: Present: regular rate and rhythm - GI/Abdominal GI/Abdominal exam: Present: normal bowel sounds, soft. Absent: tenderness - Extremities Exam Extremities exam: Absent: edema Results - Labs CBC & BMP: 03/31/17 04:03 03/31/17 04:03 Lab Results: I have reviewed the past 24 hour labs
[2017-03-31] MEDS: CEFEPIME 1,000 MG in SODIUM CHLORIDE 0.9% 100 ML IV SCH (11:43)
[2017-03-31] MEDS: SODIUM CHLORIDE 0.9% 1,000 ML IV SCH ×3 (12:26→23:55)
--- NOTE | 2017-03-31 12:35 | Gastrointestinal Progress Note ---
<Elke Barron D - Last Filed: 03/31/17 12:29> Assessment and Plan (1) Upper abdominal pain Status: Acute Assessment and plan: 03/31-no complaints of abdominal pain. Events of last night noted as below. Will give one-time dose of gentamicin. Continue to monitor this time. Father plan an addendum to follow by Dr. Eduardo for 03/30-abdominal pain improved today. Awaiting results of HIDA scan at present time. Reschedule EGD for tomorrow. Plan an addendum to follow Dr. Eduardo. 03/29-2 day history of sudden onset epigastric pain radiating to right upper quadrant with associated nausea. Pain reported to be constant in nature wavered in intensity. Inability to eat or lie down and rest due to pain. CT of abdomen at outside facility on Tuesday noted. Obtain gallbladder ultrasound today (patient n.p.o.). Tentative plan for EGD tomorrow if patient remains stable. Check stools for occult blood. Plan and addendum to follow by Dr Eduardo. Current Visit: Yes Gastroenterology - PN: Subj Interval history: CC: Cholecystitis Patient is seen, awake and alert. States he is feeling better today. Events of yesterday afternoon and last night are noted. He had an apparent change in mental status on yesterday evening with onset of some confusion from his baseline. He also developed tachycardia as well as a spike in his WBCs from 21, 000-35,000. He also began running a fever of up to 103. He was found to have an elevated lactic acid of 3.8 as well as an increase in his bilirubin up to 5.2. He was evaluated by Dr. Bose as well as Dr. Jacobs and at that time was felt to be septic related to his gallbladder and had a percutaneous cholecystostomy tube placed on yesterday. He reported initially to have blood and pus drainage immediately following tube placement and has had moderate output since this time. He is back to his baseline mental status today and is afebrile this morning. Abdomen is soft, nontender. He is currently on Zosyn and Maxipime IV. ROS: Denies shortness of breath or chest pain Exam (Progress Note) - Constitutional Vitals: Period Temp Pulse Resp BP Sys/Horner Pulse Ox Last 24 Hr 97.7 F-103 F 78-132 12-35 72-128/48-91 90-100 General appearance: normal weight, no acute distress - Head Head exam: Present: normal inspection, normocephalic - Eye Eye exam: Present: other (Lids and conjunctive are unremarkable). Absent: scleral icterus - ENT ENT exam: Present: normal exam, normal oropharynx - Neck Neck exam: Present: normal inspection - Respiratory Respiratory exam: Present: clear to auscultation bilaterally. Absent: rales, rhonchi, wheezes - Cardiovascular Cardiovascular exam: Present: regular rate and rhythm. Absent: diastolic murmur , JVD, systolic murmur - GI/Abdominal GI/Abdominal exam: Present: normal bowel sounds, soft. Absent: ascites, distended, mass, organomegaly, tenderness - Extremities Exam Extremities exam: Present: normal inspection, full ROM - Back Exam Back exam: Present: normal inspection - Neurological Exam Neurological exam: Present: alert, oriented X3 - Psychiatric Psychiatric exam: Present: normal affect, normal mood - Skin Skin exam: Present: normal color, warm, dry Results - Labs CBC & BMP: 03/31/17 04:03 03/31/17 04:03 Lab Results: I have reviewed the past 24 hour labs <Eh Eduardo - Last Filed: 03/31/17 17:28> Exam (Progress Note) - Constitutional Vitals: Period Temp Pulse Resp BP Sys/Horner Pulse Ox Last 24 Hr 97.7 F-103 F 78-119 12-32 72-128/44-91 90-100 Results - Labs CBC & BMP: 03/31/17 04:03 03/31/17 04:03
--- NOTE | 2017-03-31 12:55 | Physician Query Form ---
CLICK EDIT DOCUMENT TO SELECT QUERY ANSWER --> OK --> SIGN Eva Baires RN, CCDS Certified Clinical Ad Trafficker W) [phone] (f) [phone] [email or web address] PROVIDERS: Make your selection(s) from the choices in EACH section by typing an "x" and enter comments in the comment section. Please use your independent medical judgment in providing your response. This request does not imply that any particular answer is desired or expected. CLINICAL INDICATORS: (Providers should not edit this section) The medical record indicates that the patient was admitted with upper abdominal pain, "acute cholecystitis" WBC 13.7, Temp increased to 101.7 on the 8th, Lactic Acid of 5.4# on the 9th and the patient was later placed in the unit/ placement of triple-lumen. Sepsis is mentioned on the 9th: Diagnosis: SEPSIS Please clarify the status of (diagnosis) based on the above: (x) The above diagnosis was present on admission ( ) The above diagnosis was NOT present on admission ( ) Other, please specify: ( ) Clinically unable to determine COMMENTS: PLEASE ALSO DOCUMENT RESPONSE IN PROGRESS NOTES AND/OR DISCHARGE SUMMARY Use of terms such as suspected, likely, or probable (associated with a specific diagnosis that is being evaluated, monitored, or treated as if it exists) are acceptable and can be restated in the discharge summary if not ruled out. MTDD
[2017-03-31] MEDS ORDERED: GENTAMICIN INJ 80 MG in PREMIX 1 EACH IV ONE (13:30)
[2017-03-31] MEDS: ONDANSETRON 4 MG/2 ML VIAL IV PRN ×2 (13:50→18:50)
[2017-03-31] MEDS ORDERED: MAGNESIUM SULF RIDER 2 GM in PREMIX 1 EACH IV ONE (14:26)
[2017-03-31] MEDS: ASPIRIN EC 81 MG TABLET PO SCH (14:52)
[2017-03-31] MEDS: ALBUTEROL/IPRATROPIUM 3 ML NEB RESP TX SCH ×3 (15:39→23:08)
--- NOTE | 2017-03-31 15:57 | Cardiology Consult Note ---
Tyshawn Garland Vanessa, RN, am scribing for, and in the presence of, Antonio Andrade MD 15 :56. Assessment and Plan - Time spent with patient Time spent with patient: Greater than 30 minutes (Due to assessment, planning, documentation, medication review) (1) Sinus tachycardia Status: Resolved Assessment and plan: 76 year old WM with PMHx GERD, PUD, esophagitis now admitted with acute cholecystitis and sepsis. Required transfer to CCU, sepsis protocol initiated, and had urgent placement of percutaneous cholecystectomy tube. During acute illness, had tachycardia with associated hypotension, tachypnea, and temp 103. Septic shock improving, now on minimal dopamine. -Recheck troponin, likely demand ischemia. No significant ischemic EKG changes. He will need ischemic evaluation, once recovers from acute issues. If remains stable from a cardiac perspective, this may be pursued with a stress test as an outpatient -Check echo -Once weaned off pressor, will start beta-alyssa. Cont volume resuscitation -LFTs trending up. 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 WHITE Mr. Manuel is a 76 year old white male with PMHx of GERD, peptic ulcer disease, hyperlipidemia, esophageal spasm, right bundle branch block and PVCs. He has been evaluated by Dr. White in 2013 & 2014 for chest discomfort and has had negative cardiac workup with low risk stress testing. Symptoms contributed to GERD, esophagitis. Patient presented to [facility] ED on 03/29 epigastric pain and right sided chest discomfort. Diagnostic work revealed acute cholecystitis. Yesterday evening, patient noted to have altered mental status and was febrile 103F with associated tachypnea, tachycardia, and hypotension. He was transferred from Medr room to CCU, received IV and low-dose vasopressor, and had urgent placement of percutaneous cholecystectomy tube at bedside. CT of the head to rule out neuro changes and was negative for acute finding. Cardiology was asked to see for tachycardia. Patient is very awake, alert, and oriented this morning. He is pleasant, and he talkative. Denies any discomfort at this time. No chest pain, dyspnea. No significant tachycardia. Sinus rhythm per tele with HR 80s and no ectopy or dysrhythmia. Low dose IV Dopamine with current SBP 105. WBC 35,000. Total bilirubin 5.2. Electrolytes within normal limit. Creatinine slightly elevated today 1.8 (1.2 yesterday). Serial cardiac isoenyzmes with CPK 327 and CTNI 0.208 yesterday afternoon during acute illness. Urine culture with gram positive cocci, final result pending. CC: Lindsey Carrillo MD - Home Medications and Allergies Home Medications: Home Medications Medication Instructions Recorded Confirmed Type Aspirin EC Tab 81 mg PO DAILY 03/29/17 03/29/17 History Pantoprazole Tab [Protonix Tab] 40 mg PO DAILY 03/29/17 03/29/17 History Allergies/Adverse Reactions: Allergies Allergy/AdvReac Type Severity Reaction Status Date / Time No Known Allergies Allergy Unverified 03/29/17 06:39 - Constitutional Constitutional: Present: fatigue, fever(s). Absent: anorexia, chills, frequent falls, lethargy, weight gain, weight loss - EENT Eyes: Absent: blurry vision, loss of vision Ears: Present: decreased hearing Nose, mouth and throat: Absent: dysphagia, headache(s), neck pain, throat swelling, tongue swelling - Cardiovascular Cardiovascular: Absent: chest pain at rest, chest pain with activity, diaphoresis, dyspnea, dyspnea on exertion, edema, radiating jaw, neck or arm pain, lightheadedness, orthopnea, palpitations, PND - Respiratory Respiratory: Absent: cough, dyspnea, hemoptysis, dyspnea on exertion, change in phlegm color - Gastrointestinal Gastrointestinal: Present: abdominal pain (RUQ; improved after biliary drain placement), dyspepsia, jaundice. Absent: constipation, diarrhea, early satiety , heartburn, hematemesis, hematochezia, nausea, vomiting - Genitourinary Genitourinary: Absent: difficulty urinating, flank pain, hematuria - Musculoskeletal Musculoskeletal: Absent: arthralgias, limited range of motion, myalgias - Neurological Neurological: Absent: abnormal speech, confusion, dizziness, syncope, tremor(s) - Psychiatric Psychiatric: Absent: anxiety, depression - Endocrine Endocrine: Absent: cold intolerance, heat intolerance - Hematologic/Lymphatic Hematologic/Lymphatic: Absent: easy bleeding, easy bruising Medical,Surgical,& Family Hx - Medical History Cardio: No history of: Cardiac Dysrhythmia, CAD, Hypertension Neurology: No history of: Cerebrovascular Accident, TIA Endocrine: History of: Dyslipidemia (diet controlled) No history of: Diabetes Mellitus (IDDM), Thyroid Disorder Respiratory: No history of: COPD, Obstructive Sleep Apnea, Pulmonary Hypertension Renal: No history of: Renal Problems Gastrointestinal: History of: GERD, GI Problems Musculoskeletal: No history of: Back/Neck Problems Hematology: No history of: Anemia, Blood Transfusion Reaction Other: No history of: Cancer, HIV - Surgical History Thoracic Surgeries: Patient denies;: Kidney (Renal Surgery) (cyst but no surgery. dr. stafford follows) - Social History Smoking Status: Former smoker Frequency of Alcohol Use: None Type of Drug Use: None Physical Examination Vital Signs Temp Pulse Resp BP Pulse Ox 98.4 F 62 18 134/68 98 03/29/17 06:36 03/29/17 06:36 03/29/17 06:36 03/29/17 06:36 03/29/17 06:36 General: Present: No Apparent Distress, Other (overweight; jaundiced) HEENT: Present: Jaundice, PERRL, Normocephaly. Absent: Oral Lesions Neck: Present: Supple Neck, Midline Trachea, No JVD/HJR, No Bruit Cardiac: Present: Reg Rate and Rhythm, No Murmur. Absent: Tachycardia, Bradycardia Lungs: Present: Clear Ascult./Percussion, No Wheeze, Rales, Rhonchi Neuro: Present: Grossly Intact. Absent: Numbness, Weakness, Resting Tremor, Essential Tremor Abdomen: Present: Soft, Active Bowel Sounds, Decreased Bowel Sounds, Other (RUQ with percutaneous drain). Absent: Tender Skin: Present: Clear. Absent: Rash, Suspicious Lesions, Bruising Musculoskeletal: Present: No Fluid Collection, Normal Range of Motion Extremities: Present: No Clubbing, No Cyanosis, No Edema, Normal Upper Extr. Pulses (3+ bilaterally), Normal Lower Extr. Pulses (3+ bilaterally), Capillary Refill (normal), Other (warm, dry) Result/EKG - Labs CBC & BMP: 03/31/17 04:03 03/31/17 04:03 Lab Results: I have reviewed the past 24 hour labs Labs: Laboratory Results - last 24 hr 03/30/17 03/30/17 03/30/17 16:49 16:49 18:15 WBC RBC Hgb Hct MCV MCH MCHC RDW Plt Count MPV Neut % (Auto) Lymph % (Auto) Gates % (Auto) Eos % (Auto) Baso % (Auto) Neut # (Auto) Lymph # (Auto) Gates # (Auto) Eos # (Auto) Baso # (Auto) Total Counted Immature Gran % Nucleated RBC % Immature Gran # Segmented Neutrophils Band Neutrophils Lymphocytes Monocytes Myelocytes Nucleated RBCs # Platelet Estimate Immature Plt Fraction Pappenheimer Bodies Sodium Potassium Chloride Carbon Dioxide Anion Gap BUN Creatinine GFR Calculation BUN/Creatinine Ratio Glucose POC Glucose Calculated Osmolality Lactic Acid Calcium Magnesium Total Bilirubin Direct Bilirubin Indirect Bilirubin AST ALT Alkaline Phosphatase Total Creatine Kinase 327 H D CK-MB (CK-2) 1.2 Troponin I 0.208 H D Total Protein Albumin TSH 3rd Generation 0.316 L Urine Color Stefany Urine Appearance Cloudy Urine pH 5.0 Ur Specific [place] 1.016 Urine Protein 100 Urine Glucose (UA) 50 Urine Ketones Negative Urine Blood Moderate Urine Nitrate Negative Urine Bilirubin Small H Urine Urobilinogen 4.0 H Urine Leukocytes Negative Urine RBC 20 Urine WBC 2 Ur Squamous Epith Cells Occasional Amorphous Crystals Few Urine Bacteria Occasional Urine Mucus Moderate Ur Culture Indicated? Not indicated 03/30/17 03/30/17 03/30/17 18:22 19:36 23:00 WBC RBC Hgb Hct MCV MCH MCHC RDW Plt Count MPV Neut % (Auto) Lymph % (Auto) Gates % (Auto) Eos % (Auto) Baso % (Auto) Neut # (Auto) Lymph # (Auto) Gates # (Auto) Eos # (Auto) Baso # (Auto) Total Counted Immature Gran % Nucleated RBC % Immature Gran # Segmented Neutrophils Band Neutrophils Lymphocytes Monocytes Myelocytes Nucleated RBCs # Platelet Estimate Immature Plt Fraction Pappenheimer Bodies Sodium Potassium Chloride Carbon Dioxide Anion Gap BUN Creatinine GFR Calculation BUN/Creatinine Ratio Glucose POC Glucose 113 H Calculated Osmolality Lactic Acid 5.4 H 3.8 H Calcium Magnesium Total Bilirubin Direct Bilirubin Indirect Bilirubin AST ALT Alkaline Phosphatase Total Creatine Kinase CK-MB (CK-2) Troponin I Total Protein Albumin TSH 3rd Generation Urine Color Urine Appearance Urine pH Ur Specific [place] Urine Protein Urine Glucose (UA) Urine Ketones Urine Blood Urine Nitrate Urine Bilirubin Urine Urobilinogen Urine Leukocytes Urine RBC Urine WBC Ur Squamous Epith Cells Amorphous Crystals Urine Bacteria Urine Mucus Ur Culture Indicated? 03/30/17 03/31/17 03/31/17 Unknown 04:03 04:03 WBC 35.4 H D RBC 4.52 Hgb 14.3 Hct 39.6 L MCV 87.6 MCH 32 MCHC 36.1 H RDW 12.7 Plt Count 112 L MPV 12.9 H Neut % (Auto) 87.5 H Lymph % (Auto) 3.6 L Gates % (Auto) 2.9 Eos % (Auto) 0.0 Baso % (Auto) 0.3 Neut # (Auto) 31.0 H Lymph # (Auto) 1.3 L Gates # (Auto) 1.0 H Eos # (Auto) 0.0 Baso # (Auto) 0.1 Total Counted 100 Immature Gran % 5.7 Nucleated RBC % 0.0 Immature Gran # 2.02 Segmented Neutrophils 62 Band Neutrophils 28 H Lymphocytes 2 L Monocytes 5 Myelocytes 3 Nucleated RBCs # 0.00 Platelet Estimate Adequate Immature Plt Fraction 0.0 Pappenheimer Bodies Nurse Anesthetist Sodium 135 L Potassium 4.3 Chloride 102 Carbon Dioxide 23 Anion Gap 14.3 BUN 30 H D Creatinine 1.80 H GFR Calculation 47 BUN/Creatinine Ratio 16.00 Glucose 116 H POC Glucose Calculated Osmolality 276.1 Lactic Acid Calcium 7.2 L Magnesium 1.6 L Total Bilirubin Direct Bilirubin Indirect Bilirubin AST ALT Alkaline Phosphatase Total Creatine Kinase CK-MB (CK-2) Troponin I Total Protein Albumin TSH 3rd Generation Urine Color Dark yellow Urine Appearance Cloudy Urine pH 5.0 Ur Specific [place] 1.013 Urine Protein 100 Urine Glucose (UA) Negative Urine Ketones Negative Urine Blood Moderate Urine Nitrate Negative Urine Bilirubin Negative Urine Urobilinogen 4.0 H Urine Leukocytes Negative Urine RBC 20 Urine WBC 2 Ur Squamous Epith Cells Occasional Amorphous Crystals Occasional Urine Bacteria Occasional Urine Mucus Occasional Ur Culture Indicated? Ordered separately 03/31/17 04:03 WBC RBC Hgb Hct MCV MCH MCHC RDW Plt Count MPV Neut % (Auto) Lymph % (Auto) Gates % (Auto) Eos % (Auto) Baso % (Auto) Neut # (Auto) Lymph # (Auto) Gates # (Auto) Eos # (Auto) Baso # (Auto) Total Counted Immature Gran % Nucleated RBC % Immature Gran # Segmented Neutrophils Band Neutrophils Lymphocytes Monocytes Myelocytes Nucleated RBCs # Platelet Estimate Immature Plt Fraction Pappenheimer Bodies Sodium Potassium Chloride Carbon Dioxide Anion Gap BUN Creatinine GFR Calculation BUN/Creatinine Ratio Glucose POC Glucose Calculated Osmolality Lactic Acid Calcium Magnesium Total Bilirubin 5.20 H Direct Bilirubin 4.00 H Indirect Bilirubin 1.2 H AST 75 H ALT 60 Alkaline Phosphatase 72 Total Creatine Kinase CK-MB (CK-2) Troponin I Total Protein 5.1 L Albumin 2.5 L TSH 3rd Generation Urine Color Urine Appearance Urine pH Ur Specific [place] Urine Protein Urine Glucose (UA) Urine Ketones Urine Blood Urine Nitrate Urine Bilirubin Urine Urobilinogen Urine Leukocytes Urine RBC Urine WBC Ur Squamous Epith Cells Amorphous Crystals Urine Bacteria Urine Mucus Ur Culture Indicated? - Diagnostic Findings Procedure: Chest x-ray: image reviewed by me, report reviewed by me - EKG EKG results: interpreted by me, no acute changes EKG shows: sinus rhythm Lupe Garland Attila, MD, personally performed the services described in this documentation, ascribed by Nichole Villagran RN in my presence, and it is both accurate and complete [id number] .
--- NOTE | 2017-03-31 20:10 | ECHO Report ---
Martín Manuel Exam Date: 03/31/2017 15:13 Referring Physician: Technologist: Lisseth Oliver RDCS Age: 76 Ht (in): 72 Wt (lb): 230 Gender: M Exam Location: [facility] Echo Indications: Sepsis, Acute chyoleystitis, Essential (primary) hypertension, LIU BP: 104 / 63 HR: 83 Rhythm: Sinus Technical Quality: IMPRESSIONS Normal left ventricular cavity size. Normal left ventricular wall thickness. There is abnormal septal motion, with normal systolic thickening. Estimated left ventricle ejection fraction 50%. Normal diastolic function. Mild biatrial enlargement. Mild right ventricle dilatation, with normal systolic function, with normal pulmonary pressure. MEASUREMENTS (Male / Female) Normal Values 2D ECHO LV Diastolic Diameter PLAX 4.6 cm 4.2 - 5.9 / 3.9 - 5.3 cm LV Systolic Diameter PLAX 2.6 cm LV Fractional Shortening PLAX 43.8 % IVS Diastolic Thickness 1.0 cm 0.6 - 1.0 / 0.6 - 0.9 cm LVPW Diastolic Thickness 1.0 cm 0.6 - 1.0 / 0.6 - 0.9 cm RV Internal Dim ED PLAX 3.5 cm Aortic Root Diameter 2.8 cm LA Systolic Diameter LX 4.1 cm 3.0 - 4.0 / 2.7 - 3.8 cm DOPPLER TR Peak Velocity 271.0 cm/s TR Peak Gradient 29.4 mmHg FINDINGS Left Ventricle Normal left ventricular cavity size. Normal left ventricular wall thickness. There is abnormal septal motion, with normal systolic thickening. Estimated left ventricle ejection fraction 50%. Normal diastolic function. Right Ventricle Mildly increased right ventricular size. Normal systolic function. Right Atrium The right atrium is mildly enlarged. Left Atrium The left atrium is mildly enlarged. Mitral Valve Morphologically normal mitral valve. Trace mitral valve regurgitation. Aortic Valve Morphologically normal aortic valve without significant sclerosis or stenosis. There is no aortic regurgitation. Tricuspid Valve Morphologically normal tricuspid valve. Mild tricuspid valve regurgitation. Tricuspid regurgitation velocities suggest a PAP of 39 mmHg. Pulmonic Valve Morphologically normal pulmonic valve without significant stenosis. There is no pulmonic regurgitation. Pericardium Normal pericardium without effusion. Aorta Normal ascending aorta dimension. Antonio Andrade (Electronically Signed) Final Date: 31 March 2017 20:09
[2017-03-31] MEDS ORDERED: ONDANSETRON 4 MG/2 ML VIAL IV ONE (20:32)
[2017-03-31] MEDS: DOPamine 800 MG/250 ML PREMIX IV SCH (22:39)
[2017-04-01] MEDS: ALBUTEROL/IPRATROPIUM 3 ML NEB RESP TX SCH ×6 (03:14→23:18)
[2017-04-01 04:10] LABS: Basophils # 0.1 10*3/uL (0.0-0.2); Basophils % 0.3 % (0.0-0.8); Eosinophils # 0.1 10*3/uL (0.0-0.87); Eosinophils % 0.3 % (0.00-10.9); Hematocrit 35.1 VOL% (42.0-52.0); Hemoglobin 12.4 GM/DL (14.0-18.0); Immature Granulocytes % 1.9 %; Immature Granulocytes Absolute 0.32 #; Lymphocytes # 0.9 10*3/uL (1.4-4.0); Lymphocytes % 5.7 % (21.2-54.2); Mean Corpuscular HGB Conc 35.3 GM/DL (32-36); Mean Corpuscular Hemoglobin 31 PG (27-34); Mean Corpuscular Volume 87.5 FL (87-102); Mean Platelet Volume 12.8 FL (9.6-12.0); Monocytes # 0.9 10*3/uL (0.11-0.8); Monocytes % 5.3 % (1.7-12.7); Neutrophils # 14.2 10*3/uL (1.4-7.4); Neutrophils % 86.5 % (38.7-73.9); Red Blood Count 4.01 MC/CUMM (3.8-5.5); Red Cell Distribution Width 13.1 % (9.3-17.3); White Blood Count 16.5 T/CUMM (4-12)
[2017-04-01 04:20] LABS: Platelet Count 97 T/CUMM (130-400)
[2017-04-01 04:53] LABS: Calcium 7.3 MG/DL (8.5-10.1); Magnesium 2.7 MG/DL (1.8-2.4); Osmolality,Calculated 282.7 MOS/KG (273-304); Potassium 3.4 MMOL/L (3.5-5.1)
[2017-04-01 05:49] LABS: Band Neutrophils 6 % (0-10); Eosinophils 1 % (0-10); Lymphocytes 5 % (20-55); Microcytosis Slight; Segmented Neutrophils 85 % (50-85); Total Cells Counted 100
[2017-04-01] MEDS: ONDANSETRON 4 MG/2 ML VIAL IV PRN (06:14)
--- NOTE | 2017-04-01 06:51 | General Surgery Progress Note ---
Assessment and Plan (1) Cholecystitis, acute Problem details: may be progressing to sepsis with new tachycardia and confusion Status: Acute Assessment and plan: He appears to have acute cholecystitis. He may have developing sepsis. He just received his first dose of IV antibiotics. I suspect that his tachycardia is related to his gallbladder and developing sepsis and we will check an EKG to make sure that he has not gone into atrial fibrillation. I discussed the treatment options with the patient in the family. I had initially discussed laparoscopic cholecystectomy with him and they have expressed concerns about doing a cholecystectomy considering the fact that he seems to be getting sicker and may not be a good candidate for surgery. We also discussed the option of IV antibiotics and resuscitation with consideration of a percutaneous drain to temporize the situation and relieve any biliary sepsis temporarily. I also discussed this with Dr. Jacobs who is going to see how he does on antibiotics and if he responds then we can hold off however if he continues to worsen then we can look at doing a percutaneous drain tonight. Either way I feel that he needs to be moved to the ICU and I discussed this with Dr. Ricarda alvarenga. I would hope to see that he responds to antibiotics and fluids however if he does not we need to intervene on his gallbladder with either percutaneous drainage or going ahead with cholecystectomy. These issues were discussed in detail with the patient and family. 03/31: We moved him to CCU last night with sepsis and he had percutaneous drain placed by radiology. He looks better this morning. He is still requiring some pressors and required some fluids last night. He does not look as ill and is much more alert and oriented. He needs to continue with antibiotics and drainage. His white blood cell count has risen and his creatinine is risen a bit as well and this will need to be followed. 04/01: He looks and feels much better. He is not having fever and his vital signs are now normal. He did have an elevated bilirubin with minimal increase in his transaminases. This could be related to sepsis or could be related to a bile duct stone. I will check his liver function tests again this morning. GI is following him as well. Current Visit: Yes Subjective Patient reports: Present: feels better. Absent: still having pain, nausea, vomiting, shortness of breath, fever Exam - Constitutional Vitals: Period Temp Pulse Resp BP Sys/Horner Pulse Ox Last 24 Hr 97.7 F-99.1 F 71-105 12-33 77-147/39-99 95-100 General appearance: no acute distress - Head Head exam: Present: normocephalic - Respiratory Respiratory exam: Absent: accessory muscle use - GI/Abdominal GI/Abdominal exam: Present: soft. Absent: distended, guarding, tenderness, rebound - Neurological Exam Neurological exam: Present: alert, oriented X3 Results - Labs CBC & BMP: 04/01/17 03:50 04/01/17 03:50 Lab Results: I have reviewed the past 24 hour labs
[2017-04-01 07:14] LABS: Albumin 2.1 G/DL (3.4-5.0); Bilirubin,Indirect 0.5 MG/DL (0.0-1.0); Bilirubin,Total 1.5 MG/DL (0.2-1.0); Total Protein 4.6 G/DL (6.4-8.3)
[2017-04-01] MEDS: SODIUM CHLORIDE 0.9% 1,000 ML IV SCH ×3 (08:03→16:26)
[2017-04-01] MEDS: ASPIRIN EC 81 MG TABLET PO SCH (08:03)
[2017-04-01] MEDS: ENOXAPARIN 40 MG/0.4 ML SYRINGE SUBCUT SCH (08:04)
[2017-04-01] MEDS: FAMOTIDINE 20 MG/2 ML VIAL IV SCH ×2 (08:04→21:28)
[2017-04-01] MEDS: PIPERACILLIN/TAZOBACTAM 3,375 MG in SODIUM CHLORIDE 0.9% 100 ML IV SCH ×2 (08:04→17:13)
[2017-04-01] MEDS ORDERED: POTASSIUM CHLORIDE 20 MEQ TABLET PO ONE (10:39)
--- NOTE | 2017-04-01 10:59 | Gastrointestinal Progress Note ---
<Elke Barron Gabrielle - Last Filed: 04/01/17 10:56> Assessment and Plan (1) Upper abdominal pain Status: Acute Assessment and plan: 04/01-no complaints of abdominal pain. No nausea vomiting. Afebrile. WBCs down today. LFTs are trending downward. For transfer to floor today. Continue to monitor present time. Plan an addendum to follow by Dr. Eduardo. 03/31-no complaints of abdominal pain. Events of last night noted as below. Will give one-time dose of gentamicin. Continue to monitor this time. Father plan an addendum to follow by Dr. Eduardo for 03/30-abdominal pain improved today. Awaiting results of HIDA scan at present time. Reschedule EGD for tomorrow. Plan an addendum to follow Dr. Eduardo. 03/29-2 day history of sudden onset epigastric pain radiating to right upper quadrant with associated nausea. Pain reported to be constant in nature wavered in intensity. Inability to eat or lie down and rest due to pain. CT of abdomen at outside facility on Tuesday noted. Obtain gallbladder ultrasound today (patient n.p.o.). Tentative plan for EGD tomorrow if patient remains stable. Check stools for occult blood. Plan and addendum to follow by Dr Eduardo. Current Visit: Yes Gastroenterology - PN: Subj Interval history: CC: Cholecystitis Patient is seen, awake and alert with daughter at bedside. States that he slept fairly well last night he denies any abdominal pain, nausea or vomiting. He is currently afebrile and his WBCs are noted to be trending down at 16,000. Abdomen is soft, nontender. His LFTs are also noted to be down with bilirubin at 1.5. Percutaneous drain is patent with minimal output noted at this time. He is tolerating clear liquids. He is noted for transfer to the floor later today. ROS: Denies shortness of breath or chest pain Exam (Progress Note) - Constitutional Vitals: Period Temp Pulse Resp BP Sys/Horner Pulse Ox Last 24 Hr 97.6 F-99.1 F 68-105 12-33 77-147/39-99 94-100 General appearance: normal weight, no acute distress - Head Head exam: Present: normal inspection, normocephalic - Eye Eye exam: Present: other (Lids and conjunctive are unremarkable). Absent: scleral icterus - ENT ENT exam: Present: normal exam, normal oropharynx - Neck Neck exam: Present: normal inspection - Respiratory Respiratory exam: Present: clear to auscultation bilaterally. Absent: rales, rhonchi, wheezes - Cardiovascular Cardiovascular exam: Present: regular rate and rhythm. Absent: diastolic murmur , JVD, systolic murmur - GI/Abdominal GI/Abdominal exam: Present: normal bowel sounds, soft. Absent: ascites, distended, mass, organomegaly, tenderness - Extremities Exam Extremities exam: Present: normal inspection, full ROM - Back Exam Back exam: Present: normal inspection - Neurological Exam Neurological exam: Present: alert, oriented X3 - Psychiatric Psychiatric exam: Present: normal affect, normal mood - Skin Skin exam: Present: normal color, warm, dry Results - Labs CBC & BMP: 04/01/17 03:50 04/01/17 03:50 Lab Results: I have reviewed the past 24 hour labs <Eh Eduardo - Last Filed: 04/01/17 14:35> Exam (Progress Note) - Constitutional Vitals: Period Temp Pulse Resp BP Sys/Horner Pulse Ox Last 24 Hr 97.6 F-99.1 F 68-97 12-33 78-147/39-99 94-100 Results - Labs CBC & BMP: 04/01/17 03:50 04/01/17 03:50
[2017-04-01] MEDS ORDERED: FUROSEMIDE 40 MG/4 ML VIAL IV ONE (11:10)
--- NOTE | 2017-04-01 11:29 | Cardiology Progress Note ---
Tyshawn Garland Vanessa RN, am scribing for, and in the presence of, Antonio Andrade MD 11 :26. Assessment and Plan - Time spent with patient Time spent with patient: Greater than 30 minutes (1) Sinus tachycardia Status: Resolved Assessment and plan: 76 year old WM with PMHx GERD, PUD, esophagitis now admitted with acute cholecystitis and sepsis. Required transfer to CCU, sepsis protocol initiated, and had urgent placement of percutaneous cholecystectomy tube. During acute illness, had tachycardia with associated hypotension, tachypnea, and temp 103. Required low dose Dopamine. Now stable off pressor. Echocardiogram with normal systolic function, EF 50%, mild biatrial enlargement, mild pulm HTN with PAP 39 mmHg. -Mildly elev trop, likely demand ischemia. No significant ischemic EKG changes. He will need ischemic evaluation, once recovers from acute issues. If remains stable from a cardiac perspective, this may be pursued with a stress test as an outpatient -IV vasopressor weaned off last night. -Start metoprolol 12.5 mg bid. -Cont ASA -Will need to consider statin when LFTs normalize. We can hold off on this until he recovers from the gallbladder issues -Sign off today. Can follow up with Dr. White as outpatient for stress test. Pls call with questions. 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 WHITE Mr. Manuel is a 76 year old white male with PMHx of GERD, peptic ulcer disease, hyperlipidemia, esophageal spasm, right bundle branch block and PVCs. He has been evaluated by Dr. White in 2013 & 2014 for chest discomfort and has had negative cardiac workup with low risk stress testing. Symptoms contributed to GERD, esophagitis. Patient presented to [facility] ED on 03/29 epigastric pain and right sided chest discomfort. Diagnostic work revealed acute cholecystitis. Yesterday evening, patient noted to have altered mental status and was febrile 103F with associated tachypnea, tachycardia, and hypotension. He was transferred from [facility] room to CCU, received IV and low-dose vasopressor, and had urgent placement of percutaneous cholecystectomy tube at bedside. CT of the head to rule out neuro changes and was negative for acute finding. Cardiology was asked to see for tachycardia. March: Mr. Manuel continues to feel better. Remains afebrile. IV vasopressor discontinued yesterday evening. SBP 110-140 mmHg range. No chest pain or shortness of breath. Troponin levels have trended down. LFTs and bilirubin slightly abnormal but have improved significantly today. Creatinine and WBC improving today also. Hypokalemia, 3.4. Patient for transfer to [facility] floor today. Exam (Progress Note) - Constitutional Vitals: Period Temp Pulse Resp BP Sys/Horner Pulse Ox Last 24 Hr 97.7 F-99.1 F 71-105 12-33 77-147/39-99 95-100 Exam: General: Present: No Apparent Distress, Other (overweight; color improved today) HEENT: Present: Jaundice, PERRL, Normocephaly. Absent: Oral Lesions Neck: Present: Supple Neck, Midline Trachea, No JVD/HJR, No Bruit Cardiac: Present: Reg Rate and Rhythm, No Murmur. Absent: Tachycardia, Bradycardia Lungs: Present: Slight expirational wheeze.No rales or rhonchi. Neuro: Present: Grossly Intact. Absent: Numbness, Weakness, Resting Tremor, Essential Tremor Abdomen: Present: Soft, Active Bowel Sounds, Decreased Bowel Sounds, Other (RUQ with percutaneous drain). Absent: Tender Skin: Present: Clear. Absent: Rash, Suspicious Lesions, Bruising Musculoskeletal: Present: No Fluid Collection, Normal Range of Motion Extremities: Present: No Clubbing, No Cyanosis, No Edema, Normal Upper Extr. Pulses (3+ bilaterally), Normal Lower Extr. Pulses (3+ bilaterally), Capillary Refill (normal), Other (warm, dry) Result/EKG - Labs CBC & BMP: 04/01/17 03:50 04/01/17 03:50 Lab Results: I have reviewed the past 24 hour labs Labs: Laboratory Results - last 24 hr 03/31/17 04/01/17 04/01/17 16:42 03:50 03:50 WBC 16.5 H D RBC 4.01 Hgb 12.4 L Hct 35.1 L MCV 87.5 MCH 31 MCHC 35.3 RDW 13.1 Plt Count 97 L MPV 12.8 H Neut % (Auto) 86.5 H Lymph % (Auto) 5.7 L [place] % (Auto) 5.3 Eos % (Auto) 0.3 Baso % (Auto) 0.3 Neut # (Auto) 14.2 H Lymph # (Auto) 0.9 L [place] # (Auto) 0.9 H Eos # (Auto) 0.1 Baso # (Auto) 0.1 Total Counted 100 Immature Gran % 1.9 Nucleated RBC % 0.0 Immature Gran # 0.32 Segmented Neutrophils 85 Band Neutrophils 6 Lymphocytes 5 L Monocytes 3 Eosinophils 1 Nucleated RBCs # 0.00 Immature Plt Fraction 0.0 Microcytosis Slight Morphology Comment Sodium 138 Potassium 3.4 L Chloride 106 Carbon Dioxide 24 Anion Gap 11.4 BUN 36 H Creatinine 1.40 H GFR Calculation 64 BUN/Creatinine Ratio 25.00 H Glucose 107 H Calculated Osmolality 282.7 Calcium 7.3 L Magnesium 2.7 H Total Bilirubin Direct Bilirubin Indirect Bilirubin AST ALT Alkaline Phosphatase Troponin I 0.083 H D Total Protein Albumin 04/01/17 04/01/17 03:50 03:50 WBC RBC Hgb Hct MCV MCH MCHC RDW Plt Count MPV Neut % (Auto) Lymph % (Auto) [place] % (Auto) Eos % (Auto) Baso % (Auto) Neut # (Auto) Lymph # (Auto) [place] # (Auto) Eos # (Auto) Baso # (Auto) Total Counted Immature Gran % Nucleated RBC % Immature Gran # Segmented Neutrophils Band Neutrophils Lymphocytes Monocytes Eosinophils Nucleated RBCs # Immature Plt Fraction Microcytosis Morphology Comment Sodium Potassium Chloride Carbon Dioxide Anion Gap BUN Creatinine GFR Calculation BUN/Creatinine Ratio Glucose Calculated Osmolality Calcium Magnesium Total Bilirubin 1.50 H Direct Bilirubin 1.00 H Indirect Bilirubin 0.5 AST 55 H ALT 54 Alkaline Phosphatase 57 Troponin I 0.068 H Total Protein 4.6 L Albumin 2.1 L - EKG EKG results: interpreted by me, no acute changes EKG shows: sinus rhythm (Occasional PAC) Lupe Garland Attila, MD, personally performed the services described in this documentation, ascribed by Nichole Villagran RN in my presence, and it is both accurate and complete .
--- NOTE | 2017-04-01 14:12 | Hospitalist Progress Note ---
Assessment and Plan (1) Sepsis Status: Acute Assessment and plan: 1)septic shock due to acute cholecystitis- shock has resolved after volume resuscitation, antibiotics, and perc drain and a brief period of pressor support. anticipate eventual lap missy. BCx growing E coli. repeat culture today. Gallblader fluid growing GNR and GPC. UCx positive for GPC. Since he is afebrile and clinically improved, continue with current Zosyn. GI and General surgery seeing him. Transfer to floor. lactic peaked at 5.4, down to 3.8 at last check after resuscitation. WBC down, afebrile. 2)HTN- has not been an issue while septic. 3)LIU- creatinine rising- from 1.2 to 1.8. now 1.4. this is due to ATN from sepsis. monitor. UOP ok. replace low potassium. 4)upper respiratory wheeze- suspect beginnings of pulmonary edema after volume resuscitation on admission. Give lasix 40mg IV times one. sats good. nebs prn. decreased IVF to 75/hr. Did not stop completely because he isn't eating. Current Visit: Yes (2) Cholecystitis, acute Problem details: may be progressing to sepsis with new tachycardia and confusion Status: Acute Current Visit: Yes Hospitalist: Subjective Interval history: MR Manuel feels good this morning and denies pain or shortness of breath. He is not hungry because he has some nausea. He has been off pressors 24 hours. He has an audible wheeze/rhonchi, but his lungs sound clear. I spoke to his daughter adn answered her questions. Plan is for perc drain for several weeks and then consideration of surgery. Transaminases and bili down. Tolerating clears. Exam - Constitutional Vitals: Period Temp Pulse Resp BP Sys/Horner Pulse Ox Last 24 Hr 97.6 F-99.1 F 68-97 12-33 78-147/39-99 94-100 General appearance: no acute distress, over weight - Head Head exam: Present: normocephalic, atraumatic - Eye Eye exam: Present: EOMI. Absent: scleral icterus - Respiratory Respiratory exam: Present: rales (few at bases, squeaky wheeze upper resp) - Cardiovascular Cardiovascular exam: Present: regular rate and rhythm - GI/Abdominal GI/Abdominal exam: Present: normal bowel sounds, soft. Absent: tenderness - Extremities Exam Extremities exam: Absent: edema - Neurological Exam Neurological exam: Present: alert, oriented X3 - Skin Skin exam: Present: warm, dry Results - Labs CBC & BMP: 04/01/17 03:50 04/01/17 03:50 Lab Results: I have reviewed the past 24 hour labs
[2017-04-01] MEDS: METOPROLOL TARTRATE 25 MG TABLET PO SCH (21:28)
[2017-04-02] MEDS: SODIUM CHLORIDE 0.9% 1,000 ML IV SCH ×3 (00:25→17:46)
[2017-04-02] MEDS: PIPERACILLIN/TAZOBACTAM 3,375 MG in SODIUM CHLORIDE 0.9% 100 ML IV SCH ×3 (00:26→16:13)
[2017-04-02 02:33] LABS: Basophils # 0.1 10*3/uL (0.0-0.2); Basophils % 0.4 % (0.0-0.8); Eosinophils # 0.1 10*3/uL (0.0-0.87); Eosinophils % 1.2 % (0.00-10.9); Hematocrit 34.7 VOL% (42.0-52.0); Hemoglobin 12.3 GM/DL (14.0-18.0); Immature Granulocytes % 0.8 %; Lymphocytes # 0.9 10*3/uL (1.4-4.0); Lymphocytes % 7.3 % (21.2-54.2); Mean Corpuscular HGB Conc 35.4 GM/DL (32-36); Mean Corpuscular Hemoglobin 31 PG (27-34); Mean Corpuscular Volume 86.8 FL (87-102); Mean Platelet Volume 13.1 FL (9.6-12.0); Monocytes # 0.9 10*3/uL (0.11-0.8); Monocytes % 7.2 % (1.7-12.7); Neutrophils # 9.8 10*3/uL (1.4-7.4); Neutrophils % 83.1 % (38.7-73.9); Platelet Count 103 T/CUMM (130-400); Red Cell Distribution Width 13.3 % (9.3-17.3); White Blood Count 11.8 T/CUMM (4-12)
[2017-04-02 02:59] LABS: Albumin 2.2 G/DL (3.4-5.0); Calcium 7.7 MG/DL (8.5-10.1); Magnesium 2.5 MG/DL (1.8-2.4); Osmolality,Calculated 285.3 MOS/KG (273-304); Potassium 3.4 MMOL/L (3.5-5.1); Total Protein 4.8 G/DL (6.4-8.3)
[2017-04-02] MEDS: ALBUTEROL/IPRATROPIUM 3 ML NEB RESP TX SCH ×5 (03:13→19:25)
[2017-04-02] MEDS: ENOXAPARIN 40 MG/0.4 ML SYRINGE SUBCUT SCH (06:30)
--- NOTE | 2017-04-02 08:39 | Hospitalist Progress Note ---
Assessment and Plan - Time spent with patient Time spent with patient: Less than 30 minutes (1) Sepsis Status: Acute Assessment and plan: Patient had septic shock secondary to acute cholecystitis. He is improved and is off pressors at this time. He is on empiric IV antibiotics. Cultures of the blood revealed Escherichia coli and urine cultures have revealed enterococcus which are penicillin sensitive. Continuing current IV antibiotic therapy as well as percutaneous drainage. GI general surgery continue to follow. Current Visit: Yes (2) Acute kidney injury Status: Acute Assessment and plan: Creatinine has improved from 1.8-1.3 today. Continue to avoid any nephrotoxic agents or insults. Continue current medical regimen. Current Visit: Yes (3) Cholecystitis, acute Problem details: may be progressing to sepsis with new tachycardia and confusion Status: Acute Assessment and plan: Patient receiving IV antibiotics and being followed by general surgery as well as GI. He did have percutaneous drainage and is improved dramatically. He was transferred from the ICU to the floor yesterday. Current Visit: Yes Hospitalist: Subjective Interval history: Chart is been reviewed and patient examined. He is in good spirits today. He is eating a popsicle and I am no complaints. Exam - Constitutional Vitals: Period Temp Pulse Resp BP Sys/Horner Pulse Ox Last 24 Hr 97.7 F-98.9 F 61-96 16-75 100-129/67-93 92-100 General appearance: no acute distress - Head Head exam: Present: normocephalic, atraumatic - Eye Eye exam: Present: EOMI Pupils: Present: FERMÍN - ENT ENT exam: Present: normal oropharynx - Neck Neck exam: Absent: lymphadenopathy, meningismus, tenderness, thyromegaly - Respiratory Respiratory exam: Present: clear to auscultation bilaterally. Absent: wheezes - Cardiovascular Cardiovascular exam: Present: regular rate and rhythm - GI/Abdominal GI/Abdominal exam: Present: normal bowel sounds, soft. Absent: tenderness, rebound - Extremities Exam Extremities exam: Absent: calf tenderness, edema - Back Exam Back exam: Present: normal inspection - Neurological Exam Neurological exam: Present: alert, oriented X3. Absent: CN II-XII intact, motor sensory deficit - Psychiatric Psychiatric exam: Present: normal affect, normal mood. Absent: agitated, anxious - Skin Skin exam: Present: warm, dry. Absent: rash Results - Labs CBC & BMP: 04/02/17 02:06 08/12/17 02:06 Lab Results: I have reviewed the past 24 hour labs - Diagnostic Findings Procedure: Chest x-ray: image reviewed by me
[2017-04-02] MEDS: FAMOTIDINE 20 MG/2 ML VIAL IV SCH ×2 (08:53→21:01)
[2017-04-02] MEDS: METOPROLOL TARTRATE 25 MG TABLET PO SCH ×2 (08:54→21:00)
[2017-04-02] MEDS: ASPIRIN EC 81 MG TABLET PO SCH (08:54)
[2017-04-02] MEDS: POTASSIUM CHLORIDE 20 MEQ TABLET PO SCH ×2 (08:59→21:00)
--- NOTE | 2017-04-02 09:26 | XRay Report ---
Portable chest Date: 04/02/2017 Clinical history: Sepsis Comparison: 03/30/2017 Technique: Portable AP sitting chest Findings: Persistent cardiomegaly with stable right IJ CVP line. Minimally reduced parenchymal findings in the lungs with stable mediastinum. Degenerative changes are noted. Impression: Minimally improved CHF. Persistent cardiomegaly. PROCEDURE INTERPRETED AT [facility] DEPARTMENT OF RADIOLOGY Final Report Signed by: Dr. Falguni Yip
--- NOTE | 2017-04-02 09:29 | Gastrointestinal Progress Note ---
Assessment and Plan - Time spent with patient Time spent with patient: Greater than 30 minutes (1) Cholecystitis, acute Problem details: may be progressing to sepsis with new tachycardia and confusion Status: Acute Current Visit: Yes (2) Other specified counseling Status: Acute Current Visit: Yes Exam (Progress Note) - Constitutional Vitals: Period Temp Pulse Resp BP Sys/Horner Pulse Ox Last 24 Hr 97.7 F-98.9 F 61-96 16-75 100-129/67-93 92-100 Results - Labs CBC & BMP: 04/02/17 02:06 04/02/17 02:06 Note Addendum: PLEASE NOTE -- automatic citation of patient information is unavoidable in this electronic note. I have made a reasonable effort to review the information cited , but it is not a part of my evaluation, impression, or recommendation unless specifically discussed in the dictated text that follows. As well, voice recognition software was used in the creation of this clinical note. Reasonable effort was made to identify and correct gross errors. Despite proofreading, errors in operators school manager may be present, including nonsense verbiage at times. If you encounter such an error, please contact me at for discussion and correction. -- Fanny Chief complaint: abdominal pain Subjective: the patient is a 76-year-old male seen for follow-up of abdominal pain in the setting of cholecystitis (hospital day #5). The patient had a transient interval where he met sepsis criteria necessitating placement of a percutaneous gallbladder drain and intravenous antibiotics. This seems to of been effective with significant improvement and transfer out of the intensive care unit yesterday. Biliary train remains in place but volume is tapering off. The patient reports feeling much better than at the time of admission. He reports no abdominal pain, nausea, vomiting, fever, or chills. He is comfortable at the moment. Medications: Tylenol, Duoneb, aspirin, Colace, Lovenox, Pepcid, [place], Dilaudid , Lopressor, Zofran, Zosyn, potassium chloride, normal saline infusion Review of Symptoms: 12 point review of symptoms was negative except as noted above Physical examination: Vital Signs: Current vital signs reviewed. General Appearance: lying in bed. Comfortable. No apparent distress. Head: Normocephalic. Eyes: no scleral icterus. No scleral injection. No conjunctival pallor. Oral Cavity: Odor of breath was normal. No drooling was observed. Lips showed no abnormalities. Lungs: Respiration rhythm and depth was normal. Cardiovascular: Heart rate and rhythm were normal. Abdomen: abdomen was not distended. Abdominal auscultation revealed no abnormalities. Ascites was not discovered. Abdominal palpation revealed no tenderness and no hepatosplenomegaly. A percutaneous biliary train was in place at the right upper quadrant. There was setosanguinous appearing drainage present , low volume. Musculoskeletal System: musculoskeletal system was grossly normal. Neurological: level of consciousness was normal. Speech was normal. No coordination/cerebellum abnormalities were noted. Skin: Gen. appearance was normal. Color and pigmentation were normal. No skin lesions were appreciated. Laboratory: white blood count 11.8, hemoglobin 12.3, hematocrit 34.7, platelets 103, total bilirubin 1.5 --> 2.0, ALT 44, AST 37, alkaline phosphatase 61, albumin 2.2 Radiology: reviewed Impressions: 1. Cholecystitis -- the patient is improving clinically with percutaneous drainage and intravenous antibiotic. Serum bilirubin remains elevated but this is likely a question of intrahepatic cholestasis rather than extrahepatic obstruction as alkaline phosphatase remains in the normal range and transaminases are actually trending down. I recommend continued antibiotic, continued volume resuscitation, oral diet as tolerated, and definitive surgical therapy for cholecystitis at the discretion of the general surgery service. Should concern remain for extrahepatic biliary obstruction, like upper quadrant ultrasound screen and/or MRCP can help to clarify this. 2. Other specified counseling -- Patient seen for greater than 30 minutes. Greater than 50% of this time was spent counseling regarding differential diagnosis, likely diagnosis,, diagnostic and therapeutic options, risks, benefits, and alternatives to procedures and medications, informed consent, and plan of care generally. Patient has expressed understanding and wishes to proceed. Recommendations: -- continue antibiotic -- continue crystalloid resuscitation -- advance diet as tolerated -- cholecystectomy versus continued biliary drainage at the discretion of the general surgery service -- right upper quadrant ultrasound and/or MRCP if concern remains for common bile duct obstruction -- we will continue to follow with you
--- NOTE | 2017-04-02 10:16 | Event Note ---
04/02/2017. Patient is status post placement of a cholecystostomy tube and had to be in the unit for possible sepsis. He has several cultures done the wound with blood ahead and another one that showed Enterococcus faecalis and E. coli. It would be sensitive just to Cipro at that wound to be just a single dose of medicine. Will maintain present treatment at this time and teach them how to handle the tube. Do not know that there is any plans for any additional surgery at this point.
[2017-04-03] MEDS: ALBUTEROL/IPRATROPIUM 3 ML NEB RESP TX SCH ×7 (00:09→23:05)
[2017-04-03] MEDS: PIPERACILLIN/TAZOBACTAM 3,375 MG in SODIUM CHLORIDE 0.9% 100 ML IV SCH ×3 (00:31→15:25)
[2017-04-03] MEDS: SODIUM CHLORIDE 0.9% 1,000 ML IV SCH ×2 (00:33→18:08)
[2017-04-03] MEDS: ENOXAPARIN 40 MG/0.4 ML SYRINGE SUBCUT SCH ×2 (06:15→08:44)
[2017-04-03 07:14] LABS: Albumin 2.2 G/DL (3.4-5.0); Bilirubin,Total 1.9 MG/DL (0.2-1.0); Calcium 7.8 MG/DL (8.5-10.1); Osmolality,Calculated 280.3 MOS/KG (273-304); Potassium 3.4 MMOL/L (3.5-5.1); Total Protein 4.8 G/DL (6.4-8.3)
--- NOTE | 2017-04-03 07:39 | Hospitalist Progress Note ---
Assessment and Plan - Time spent with patient Time spent with patient: Less than 30 minutes (1) Sepsis Status: Acute Assessment and plan: Patient had septic shock secondary to acute cholecystitis. He is improved and is off pressors at this time. He is on empiric IV antibiotics. Cultures of the blood revealed Escherichia coli and urine cultures have revealed enterococcus which are penicillin sensitive. Continuing current IV antibiotic therapy as well as percutaneous drainage. GI general surgery continue to follow. 04/03/17: Continuing IV antibiotics. Continuing to improve. Current Visit: Yes (2) Acute kidney injury Status: Acute Assessment and plan: Creatinine has improved from 1.8-1.3 today. Continue to avoid any nephrotoxic agents or insults. Continue current medical regimen. 04/03/17: Creatinine continues to improve. Continue current medical regimen. Current Visit: Yes (3) Cholecystitis, acute Problem details: may be progressing to sepsis with new tachycardia and confusion Status: Acute Assessment and plan: Patient receiving IV antibiotics and being followed by general surgery as well as GI. He did have percutaneous drainage and is improved dramatically. He was transferred from the ICU to the floor yesterday. 04/03/17: Continuing IV antibiotics. Continue current care. Current Visit: Yes Hospitalist: Subjective Interval history: Patient is doing well without any chest pain, shortness breath, abdominal pain, nausea, vomiting, diarrhea, constipation. Exam - Constitutional Vitals: Period Temp Pulse Resp BP Sys/Horner Pulse Ox Last 24 Hr 98.0 F-99.3 F 62-83 18-21 104-143/60-89 91-100 General appearance: no acute distress - Head Head exam: Present: normocephalic, atraumatic - Eye Eye exam: Present: EOMI Pupils: Present: FERMÍN - ENT ENT exam: Present: normal exam - Neck Neck exam: Present: normal inspection - Respiratory Respiratory exam: Present: clear to auscultation bilaterally. Absent: rales, rhonchi, wheezes - Cardiovascular Cardiovascular exam: Present: regular rate and rhythm - GI/Abdominal GI/Abdominal exam: Present: normal bowel sounds, soft. Absent: mass, tenderness , rebound - Extremities Exam Extremities exam: Absent: calf tenderness, edema - Back Exam Back exam: Present: normal inspection - Neurological Exam Neurological exam: Present: alert, oriented X3. Absent: motor sensory deficit - Psychiatric Psychiatric exam: Present: normal affect, normal mood. Absent: agitated, anxious - Skin Skin exam: Present: warm, dry. Absent: erythema Results - Labs CBC & BMP: 04/02/17 02:06 04/03/17 04:40 Lab Results: I have reviewed the past 24 hour labs
[2017-04-03] MEDS: ASPIRIN EC 81 MG TABLET PO SCH (08:44)
[2017-04-03] MEDS: METOPROLOL TARTRATE 25 MG TABLET PO SCH ×2 (08:44→20:37)
[2017-04-03] MEDS: FAMOTIDINE 20 MG/2 ML VIAL IV SCH ×2 (08:45→20:37)
--- NOTE | 2017-04-03 10:00 | Gastrointestinal Progress Note ---
Assessment and Plan (1) Cholecystitis, acute Problem details: may be progressing to sepsis with new tachycardia and confusion Status: Acute Current Visit: Yes (2) Other specified counseling Status: Acute Current Visit: Yes Exam (Progress Note) - Constitutional Vitals: Period Temp Pulse Resp BP Sys/Horner Pulse Ox Last 24 Hr 98.0 F-99.3 F 62-83 18-21 104-143/60-89 91-99 Results - Labs CBC & BMP: 04/02/17 02:06 04/03/17 04:40 Note Addendum: PLEASE NOTE -- automatic citation of patient information is unavoidable in this electronic note. I have made a reasonable effort to review the information cited , but it is not a part of my evaluation, impression, or recommendation unless specifically discussed in the dictated text that follows. As well, voice recognition software was used in the creation of this clinical note. Reasonable effort was made to identify and correct gross errors. Despite proofreading, errors in mastic worker may be present, including nonsense verbiage at times. If you encounter such an error, please contact me at for discussion and correction. -- Fanny Chief complaint: abdominal pain Subjective: the patient is a 76-year-old male seen for follow-up of abdominal pain in the setting of cholecystitis. Biliary drain remains in place with minimal volume. The patient reports feeling pretty well this morning. He reports no abdominal pain, nausea, vomiting, fever, or chills. He reports two bowel movements overnight, soft without blood, because, or pus. Medications: Tylenol, Duoneb, aspirin, Colace, Lovenox, Pepcid, [place], Dilaudid , Lopressor, Zofran, Zosyn, potassium chloride, normal saline infusion Review of Symptoms: 12 point review of symptoms was negative except as noted above Physical examination: Vital Signs: Current vital signs reviewed. General Appearance: lying in bed. Comfortable. No apparent distress. Head: Normocephalic. Eyes: no scleral icterus. No scleral injection. No conjunctival pallor. Oral Cavity: Odor of breath was normal. No drooling was observed. Lips showed no abnormalities. Lungs: Respiration rhythm and depth was normal. Cardiovascular: Heart rate and rhythm were normal. Abdomen: abdomen was not distended. Ascites was not discovered. Abdominal palpation revealed no tenderness and no hepatosplenomegaly. A percutaneous biliary train was in place at the right upper quadrant. There was setosanguinous appearing drainage present, low volume. Musculoskeletal System: musculoskeletal system was grossly normal. Neurological: level of consciousness was normal. Speech was normal. No coordination/cerebellum abnormalities were noted. Skin: Gen. appearance was normal. Color and pigmentation were normal. No skin lesions were appreciated. Laboratory: reviewed Radiology: reviewed Impressions: 1. Cholecystitis -- the patient is improving clinically with percutaneous drainage and intravenous antibiotic. I recommend continued antibiotic, continued volume resuscitation, oral diet as tolerated, and definitive surgical therapy for cholecystitis at the discretion of the general surgery service. 2. Other specified counseling -- Patient seen for less than 30 minutes. Greater than 50% of this time was spent counseling regarding differential diagnosis, likely diagnosis,, diagnostic and therapeutic options, risks, benefits, and alternatives to procedures and medications, informed consent, and plan of care generally. Patient has expressed understanding and wishes to proceed. Recommendations: -- continue antibiotic -- continue crystalloid resuscitation -- advance diet as tolerated -- cholecystectomy versus continued biliary drainage at the discretion of the general surgery service -- we will continue to follow with you. Dr. Eduardo will resume G.I. care for this patient tomorrow.
--- NOTE | 2017-04-03 10:16 | Event Note ---
04/03/2017 Patient is afebrile still on clear liquids so I will advanced to solid solid food. He seems to be doing well there is a good bit of drainage from the tube at this time. Abdomen soft with mild discomfort but otherwise no unusual pain. He appears to be stable tolerating present treatment.
[2017-04-04] MEDS: SODIUM CHLORIDE 0.9% 1,000 ML IV SCH ×2 (00:07→09:50)
[2017-04-04] MEDS: PIPERACILLIN/TAZOBACTAM 3,375 MG in SODIUM CHLORIDE 0.9% 100 ML IV SCH ×2 (00:08→09:49)
[2017-04-04] MEDS: ALBUTEROL/IPRATROPIUM 3 ML NEB RESP TX SCH ×6 (04:03→23:00)
--- NOTE | 2017-04-04 06:58 | XRay Report ---
XR chest 1V portable Indication: CHF. Chest one view: Comparison 2 days earlier shows stable central line, mild cardiomegaly, and continued interstitial prominence of the lungs throughout, likely mild edema. Lung volumes remain low as well. No new infiltrates. Impression: No significant change. PROCEDURE INTERPRETED AT [facility] DEPARTMENT OF RADIOLOGY Final Report Signed by: Juan Sweet M.D.
[2017-04-04 06:59] LABS: Basophils # 0.1 10*3/uL (0.0-0.2); Basophils % 0.7 % (0.0-0.8); Eosinophils # 0.2 10*3/uL (0.0-0.87); Eosinophils % 2.9 % (0.00-10.9); Hematocrit 34.3 VOL% (42.0-52.0); Immature Granulocytes % 4.3 %; Immature Granulocytes Absolute 0.36 #; Lymphocytes # 1.3 10*3/uL (1.4-4.0); Lymphocytes % 15.5 % (21.2-54.2); Mean Corpuscular Hemoglobin 31 PG (27-34); Mean Corpuscular Volume 88.6 FL (87-102); Monocytes # 1.1 10*3/uL (0.11-0.8); Monocytes % 13.3 % (1.7-12.7); Neutrophils # 5.3 10*3/uL (1.4-7.4); Neutrophils % 63.3 % (38.7-73.9); Platelet Count 136 T/CUMM (130-400); Red Blood Count 3.87 MC/CUMM (3.8-5.5); Red Cell Distribution Width 13.2 % (9.3-17.3); White Blood Count 8.3 T/CUMM (4-12)
[2017-04-04] MEDS: ENOXAPARIN 40 MG/0.4 ML SYRINGE SUBCUT SCH (07:05)
[2017-04-04 07:37] LABS: Albumin 2.3 G/DL (3.4-5.0); Calcium 7.8 MG/DL (8.5-10.1); Osmolality,Calculated 279.3 MOS/KG (273-304); Potassium 3.2 MMOL/L (3.5-5.1); Total Protein 4.7 G/DL (6.4-8.3)
--- NOTE | 2017-04-04 09:03 | Gastrointestinal Progress Note ---
<Elke Barron Gabrielle - Last Filed: 04/04/17 08:59> Assessment and Plan (1) Upper abdominal pain Status: Acute Assessment and plan: 04/04-abdominal pain improved. Tolerating diet well. Transaminases unremarkable with bilirubin down at 2. Further plan an addendum to follow by Dr. Eduardo 04/01-no complaints of abdominal pain. No nausea vomiting. Afebrile. WBCs down today. LFTs are trending downward. For transfer to floor today. Continue to monitor present time. Plan an addendum to follow by Dr. Eduardo. 03/31-no complaints of abdominal pain. Events of last night noted as below. Will give one-time dose of gentamicin. Continue to monitor this time. Father plan an addendum to follow by Dr. Eduardo for 03/30-abdominal pain improved today. Awaiting results of HIDA scan at present time. Reschedule EGD for tomorrow. Plan an addendum to follow Dr. Eduardo. 03/29-2 day history of sudden onset epigastric pain radiating to right upper quadrant with associated nausea. Pain reported to be constant in nature wavered in intensity. Inability to eat or lie down and rest due to pain. CT of abdomen at outside facility on Tuesday noted. Obtain gallbladder ultrasound today (patient n.p.o.). Tentative plan for EGD tomorrow if patient remains stable. Check stools for occult blood. Plan and addendum to follow by Dr Eduardo. Current Visit: Yes Gastroenterology - PN: Subj Interval history: CC: Abdominal pain Patient is seen, awake and alert with at bedside. States he rested well overnight. He denies any abdominal pain, nausea or vomiting. He is tolerating a regular diet well. LFTs have trended downward with bilirubin at 2 and transaminases are unremarkable. He is afebrile without leukocytosis. Abdomen is soft, nontender other than mild tenderness at drain site. He continues to have bilious output from his percutaneous drain. Overall patient is slowly improving and is nearing possible discharge with plans to return to his son's house in [place] for a few days to assist in his care. ROS: Denies shortness of breath or chest pain Exam (Progress Note) - Constitutional Vitals: Period Temp Pulse Resp BP Sys/Horner Pulse Ox Last 24 Hr 98.0 F-98.8 F 70-94 16-20 107-150/65-82 92-100 General appearance: normal weight, no acute distress - Head Head exam: Present: normal inspection, normocephalic - Eye Eye exam: Present: other (Lids and conjunctive are unremarkable). Absent: scleral icterus - ENT ENT exam: Present: normal exam, normal oropharynx - Neck Neck exam: Present: normal inspection - Respiratory Respiratory exam: Present: clear to auscultation bilaterally. Absent: rales, rhonchi, wheezes - Cardiovascular Cardiovascular exam: Present: regular rate and rhythm. Absent: diastolic murmur , JVD, systolic murmur - GI/Abdominal GI/Abdominal exam: Present: normal bowel sounds, soft. Absent: ascites, distended, mass, organomegaly, tenderness - Extremities Exam Extremities exam: Present: normal inspection, full ROM - Back Exam Back exam: Present: normal inspection - Neurological Exam Neurological exam: Present: alert, oriented X3 - Psychiatric Psychiatric exam: Present: normal affect, normal mood - Skin Skin exam: Present: normal color, warm, dry Results - Labs CBC & BMP: 04/04/17 04:39 04/04/17 04:39 Lab Results: I have reviewed the past 24 hour labs <Eh Eduardo - Last Filed: 04/04/17 18:50> Exam (Progress Note) - Constitutional Vitals: Period Temp Pulse Resp BP Sys/Horner Pulse Ox Last 24 Hr 97.6 F-98.8 F 70-94 16-20 118-150/65-82 92-100 Results - Labs CBC & BMP: 04/04/17 04:39 04/04/17 04:39
[2017-04-04] MEDS ORDERED: POTASSIUM CHLORIDE 20 MEQ TABLET PO ONE (09:04)
--- NOTE | 2017-04-04 09:10 | Hospitalist Progress Note ---
Assessment and Plan - Time spent with patient Time spent with patient: Greater than 30 minutes (1) Bacteremia Status: Acute Assessment and plan: Repeat blood cultures. Change to oral Cipro. Discharge planning. Current Visit: Yes (2) Cholecystitis, acute Status: Acute Assessment and plan: Status post percutaneous drain. Significant improvement with IV antibiotics and drainage of bile. Current Visit: Yes (3) Sepsis Status: Resolved Current Visit: Yes Qualifiers: Sepsis type: Escherichia coli Qualified Code(s): A41.51 - Sepsis due to Escherichia coli [E. coli] (4) Acute kidney injury Status: Resolved Assessment and plan: Discontinue IV fluids. Current Visit: Yes Hospitalist: Subjective Interval history: Patient seen and examined. No acute events overnight. Case discussed with nursing staff. Labs reviewed. Exam - Constitutional Vitals: Period Temp Pulse Resp BP Sys/Horner Pulse Ox Last 24 Hr 98.0 F-98.8 F 70-94 16-20 107-150/65-82 92-100 Exam: Constitutional System: No distress. No tremulousness. Head: Normocephalic, atraumatic. Ears, Nose and Throat System: No pain or tenderness. No epistaxis or discharge Eyes System: Pupils equal, round, and reactive. Extraocular muscles intact. Neck: Supple, without adenopathy, No jugular venous distention. No thyromegaly, neck mass, or prior surgery apparent. Right IJ triple-lumen catheter in place Respiratory System: Chest clear to auscultation. Cardiovascular System: Heart with regular rate and rhythm. No murmur. GI System: Abdomen soft, nontender. Normo active bowel sounds present. Percutaneous drain noted right upper quadrant Musculoskeletal System: limbs with no pedal edema. Full distal pulses. Neurological System: No discernable sensory deficit. No aphasia Psychiatric System: Conversation is rational Results - Labs CBC & BMP: 04/04/17 04:39 04/04/17 04:39 Lab Results: I have reviewed the past 24 hour labs
[2017-04-04] MEDS: FAMOTIDINE 20 MG/2 ML VIAL IV SCH (09:50)
[2017-04-04] MEDS: CIPROFLOXACIN 500 MG TABLET PO SCH ×2 (09:51→20:22)
[2017-04-04] MEDS: ASPIRIN EC 81 MG TABLET PO SCH (09:52)
[2017-04-04] MEDS: METOPROLOL TARTRATE 25 MG TABLET PO SCH ×2 (09:52→20:22)
[2017-04-04 10:58] LABS: Apearance,Urine CLEAR (Clear); Bilirubin,Urine Negative (Negative); Blood, Urine Small mg/dL (Negative); Glucose,Urine (UA) Negative (Negative); Ketones,Urine Negative (Negative); Nitrite,Urine Negative (Negative); Protein,Urine Negative; RBC,Urine <1 /HPF (0-4); Urine Color Straw (Yellow); Urine Specific Gravity 1.003 (1.001-1.035); Urine Urobilinogen < 2.0 EU/DL (0.2-1.0); WBC,Urine 1 /HPF (0-6)
--- NOTE | 2017-04-04 14:19 | General Surgery Progress Note ---
Assessment and Plan - Time spent with patient Time spent with patient: Less than 30 minutes (1) Cholecystitis, acute Status: Acute Assessment and plan: 76-year-old white male admitted by the hospitalist service on 03/29/2017 with sepsis due to acute cholecystitis. Patient had cholecystostomy tube placed by radiology on 03/31/2017. Patient is now feeling much better. He is tolerating a diet and his pain is minimal. Recommend making sure patient can tolerate a diet today and most likely discharge home tomorrow with cholecystostomy tube and follow-up with Dr. Lidya VYAS if okay with other physicians. Dr. Cisneros has seen and examined patient for Dr. Lidya VYAS who is out of town. Current Visit: Yes (2) Sepsis Status: Resolved Current Visit: Yes Qualifiers: Sepsis type: Escherichia coli Qualified Code(s): A41.51 - Sepsis due to Escherichia coli [E. coli] Subjective Narrative: Patient states he is doing much better now. He is tolerating a regular diet and eating whatever he can get a hold of. His abdominal pain is much improved and he is having bowel movements. Exam - Constitutional Vitals: Period Temp Pulse Resp BP Sys/Horner Pulse Ox Last 24 Hr 97.6 F-98.8 F 70-94 16-20 107-150/65-82 92-100 Exam: 76-year-old white male, no acute distress, alert and oriented Chest clear CV regular rate and rhythm Abdomen obese, nontender, C-tube intact with minimal drainage Extremities no edema Results - Labs CBC & BMP: 04/04/17 04:39 04/04/17 04:39 Lab Results: I have reviewed the past 24 hour labs
[2017-04-05] MEDS: ALBUTEROL/IPRATROPIUM 3 ML NEB RESP TX SCH ×2 (03:30→07:33)
[2017-04-05] MEDS: ENOXAPARIN 40 MG/0.4 ML SYRINGE SUBCUT SCH (06:29)
[2017-04-05 07:17] LABS: Calcium 8.6 MG/DL (8.5-10.1); Magnesium 2.1 MG/DL (1.8-2.4); Osmolality,Calculated 278.4 MOS/KG (273-304); Potassium 4.1 MMOL/L (3.5-5.1)
[2017-04-05] MEDS ORDERED: PANTOPRAZOLE 40 MG TABLET PO SCH (09:00)
--- NOTE | 2017-04-05 09:04 | Discharge Summary ---
Hospital Course - Hospital Course Hospital Course: Mr. Manuel is a 76-year-old white male who was admitted to the hospitalist service with abdominal pain and found to have cholecystitis. He was seen in consultation by general surgery and they recommended a percutaneous cholecystostomy tube. Patient continued to worsen over short period of time and was transferred to the intensive care unit for sepsis with mental status changes and hypotension. He required emergent central line placement and IV fluid resuscitation as well as percutaneous cholecystostomy tube placement by the on-call interventional radiologist. He was found to be bacteremic with positive blood cultures for E. coli as well as positive fluid culture from the gallbladder also with E. coli and enterococcus in the urine culture. All of these organisms are sensitive to ciprofloxacin. The patient continued to improve during the course of hospitalization. He was transferred upstairs to E. where he has done well, and is tolerating regular diet. Abdominal pain has resolved. The patient is ambulating and voiding independently. He has reached maximal benefit from this inpatient hospitalization and is being discharged home in the care of his family to follow-up as an outpatient with Dr. Lidya VYAS for continued management of his percutaneous cholecystostomy tube. He is being discharged home with a prescription for ciprofloxacin 500 mg twice daily for 7 more days to complete a 14 day course of treatment. During the course of the hospitalization, the patient's blood pressures were elevated and he was started on low-dose beta-blockers. He was given a new prescription for that on discharge as well as pain medications. He is instructed to follow-up with Dr. Piper his primary care physician. The patient's home medications were reviewed and reconciled. He is a full code. I had a lengthy discussion with the patient and his at the bedside regarding his diagnosis and treatment plan as well as follow-up instructions. - Time spent with patient Time with patient DS: Greater than 30 minutes (Total discharge time for this patient, including [id number] time, clinical documentation, medication reconciliation, and discharge planning was 36 minutes.) Diagnosis - Discharge Diagnosis (1) Bacteremia Status: Acute (2) Cholecystitis, acute Status: Acute (3) Sepsis Status: Resolved (4) Acute kidney injury Status: Resolved Discharge Plan - Discharge Data Disposition: Disch To Home/Self Care Condition at Discharge: Stable Discharge Diet: advance to your usual diet Activity: resume usual activities as tolerated Hygiene: no restrictions Weight Bearing at Discharge: full weight bearing Contact your physician if you experience:: fever over 101, Nausea/Vomiting, Bleeding, pain uncontrolled by pain medications - Discharge Medications New Ciprofloxacin Tab [Cipro Tab] 500 mg PO Q12HR #14 tablet HYDROcodone/ACETAMIN 7.5-325 [[place] 7.5-325] 1 tablet PO Q4H PRN #20 tablet PRN Reason: Pain Moderate (4-7) Metoprolol Tartrate Tab [Lopressor Tab] 12.5 mg PO BID #60 tablet Continue Pantoprazole Tab [Protonix Tab] 40 mg PO DAILY Aspirin EC Tab 81 mg PO DAILY - Follow Up or Referral Follow Up: Epifanio Bose III., MD [Physician] - 1 Week - Forms/Instructions Exam - Constitutional Vitals: Period Temp Pulse Resp BP Sys/Horner Pulse Ox Last 24 Hr 97.6 F-98.6 F 72-86 16-20 118-139/64-86 93-100 Discharge Results Procedures and tests throughout hospitalization: Pending Orders 03/31/17 11:34 Occult Blood, Stool Routine 04/04/17 10:25 Blood Culture Stat Labs on day of discharge: Labs from last 24 hours 04/05/17 04/04/17 06:35 10:25 Sodium 140 Potassium 4.1 Chloride 107 Carbon Dioxide 23 Anion Gap 14.1 BUN 13 Creatinine 1.00 GFR Calculation 96 BUN/Creatinine Ratio 13.00 Glucose 95 Calculated Osmolality 278.4 Calcium 8.6 Magnesium 2.1 Urine Color Straw Urine Appearance Clear Urine pH 7.0 Ur Specific [place] 1.003 Urine Protein Negative Urine Glucose (UA) Negative Urine Ketones Negative Urine Blood Small Urine Nitrate Negative Urine Bilirubin Negative Urine Urobilinogen < 2.0 H Urine Leukocytes Negative Urine RBC <1 Urine WBC 1 Ur Culture Indicated? Not indicated DS: Provider Date of admission: 03/29/17 10:10 Primary care physician: . No PCP Attending physician on admission: Barry Briones MD Consults: 03/29/17 11:59 Consult to Physician [CONS] Routine Comment: known to you Consulting Provider: Eh Eduardo When should Consulting Provider be notified: Now Consult Notification Comment: Patient of Dr Eduardo admitted for severe Epigastric Pain 03/30/17 14:08 Consult to Physician [CONS] Routine Comment: possible cholecystitis on HIDA Consulting Provider: Epifanio Bose III. Person Notified: MD tan 03/30/17 15:50 Consult to Physician [CONS] Routine Comment: Consulting Provider: Antonio Andrade Consult to Specialist Group: Cardiology When should Consulting Provider be notified: Now Person Notified: md tan 03/30/17 17:07 Consult to Physician [CONS] Routine Comment: percutaneous drainage of gallbladder Consulting Provider: Consult to Specialist Group: Interventional Radiology Person Notified: md tan 04/01/17 10:39 Consult to Occupational Therapy [CONS] Routine Reason for Occupational Therapy: Evaluate and Treat Consult to Physical Therapy [CONS] Routine Reason for Physical Therapy: Evaluate and Treat Discharging clinician: Jyoti Neff MD Expected date of discharge: 04/05/17
[2017-04-05] MEDS: METOPROLOL TARTRATE 25 MG TABLET PO SCH (09:12)
[2017-04-05] MEDS: CIPROFLOXACIN 500 MG TABLET PO SCH (09:13)
[2017-04-05] MEDS: ASPIRIN EC 81 MG TABLET PO SCH (09:13)
[2017-04-05 10:46] VITALS: BP 123/75
--- NOTE | 2017-04-05 12:38 | General Surgery Progress Note ---
Assessment and Plan (1) Cholecystitis, acute Status: Acute Assessment and plan: He appears to have acute cholecystitis. He may have developing sepsis. He just received his first dose of IV antibiotics. I suspect that his tachycardia is related to his gallbladder and developing sepsis and we will check an EKG to make sure that he has not gone into atrial fibrillation. I discussed the treatment options with the patient in the family. I had initially discussed laparoscopic cholecystectomy with him and they have expressed concerns about doing a cholecystectomy considering the fact that he seems to be getting sicker and may not be a good candidate for surgery. We also discussed the option of IV antibiotics and resuscitation with consideration of a percutaneous drain to temporize the situation and relieve any biliary sepsis temporarily. I also discussed this with Dr. Jacobs who is going to see how he does on antibiotics and if he responds then we can hold off however if he continues to worsen then we can look at doing a percutaneous drain tonight. Either way I feel that he needs to be moved to the ICU and I discussed this with Dr. Ricarda alvarenga. I would hope to see that he responds to antibiotics and fluids however if he does not we need to intervene on his gallbladder with either percutaneous drainage or going ahead with cholecystectomy. These issues were discussed in detail with the patient and family. 03/31: We moved him to CCU last night with sepsis and he had percutaneous drain placed by radiology. He looks better this morning. He is still requiring some pressors and required some fluids last night. He does not look as ill and is much more alert and oriented. He needs to continue with antibiotics and drainage. His white blood cell count has risen and his creatinine is risen a bit as well and this will need to be followed. 04/01: He looks and feels much better. He is not having fever and his vital signs are now normal. He did have an elevated bilirubin with minimal increase in his transaminases. This could be related to sepsis or could be related to a bile duct stone. I will check his liver function tests again this morning. GI is following him as well. 04/04: He has no complaints. He has no abdominal pain and feels back to his baseline. I think that he is fine to go home with the drain with home health helping him with drain care. We will see him back in the office in the next week or so and can look at removing his drain at that time Subjective Patient reports: Present: feels better. Absent: still having pain, nausea, vomiting, fever Exam - Constitutional Vitals: Period Temp Pulse Resp BP Sys/Horner Pulse Ox Last 24 Hr 97.7 F-98.6 F 74-86 16-20 118-139/64-86 93-99 General appearance: no acute distress - Eye Eye exam: Absent: scleral icterus - Respiratory Respiratory exam: Absent: accessory muscle use - GI/Abdominal GI/Abdominal exam: Present: soft. Absent: distended, tenderness, rebound Results - Labs CBC & BMP: 04/04/17 04:39 04/05/17 06:35 Lab Results: I have reviewed the past 24 hour labs Specialty Discharge - Follow Up or Referrals Follow up with: Epifanio Bose III., MD [Physician] - 04/14/17 1:45 pm
== END 2017-04-05 11:05 | disposition home health service (06) | DRG 871 ==
LOC: N.ED 06:34 → SUATTDRO 10:10 → N.EDINP 10:10 → N.2E 14:38 → N.CC 03-30 17:26 → N.5E 04-01 13:26
PROVIDERS: ADMIT Internal Medicine; ATTEND Family Medicine